=== PATIENT | female | born 1950 | race Caucasian/White ===

== ENCOUNTER 2018-09-01 18:20 | Inpatient (IN) ==
--- NOTE | 2018-09-01 19:46 | Emergency Department Note ---
Disposition Clinical Impression: Panniculitis Disposition: Still a Patient Referrals: NONE,PCP [Primary Care Provider] - General Adult HPI - General Chief complaint: ED General Medical Stated complaint: skin infection Time Seen by Provider: 09/01/18 18:24 Source: patient Limitations: no limitations, altered mental status Nursing Notes Reviewed: Yes Vital Signs Reviewed: Yes - History of Present Illness HPI Narrative: Attestation note: Patient was seen with the emergency medicine resident/nurse practitioner/physician hospital clinic assistant/transitional resident/medical student: Dr. CAROLINE ALFREDO I have personally performed a face to face evaluation on this patient. I have reviewed and agree with history and physical examination patient management and disposition. Briefly the salient points of the case are as follows 67-year-old morbidly obese female presented by EMS for "skin infection. Patient who has ulceration in her umbilical area below the pannus of her lower abdominal folds overlapping her pelvis, has a severe panniculitis with skin breakdown & SEROUS discharge and odor. No signs of acute tissue necrosis or bleeding. Patient will the wound cleansed IV antibiotics screening labs with admission for wound care and further treatment and management. Disposition pending Pain Scale: 10 - Related Data Allergies Allergy/AdvReac Type Severity Reaction Status Date / Time No Known Allergies Allergy Verified 09/01/18 18:33 Past Medical History - Past Medical History Medical history: Reports: CVA, diabetes, hyperlipidemia, hypertension - Social History Smoking Status: Never smoker Smokeless Tobacco Status: No Alcohol use: Reports: none Drug use: Reports: none Physical Exam - General Limitations: altered mental status General appearance: alert, in no apparent distress Course Vital Signs Temperature 98.1 F 09/01/18 18:27 Pulse Rate 101 09/01/18 18:27 Respiratory Rate 18 09/01/18 18:27 Blood Pressure 110/81 09/01/18 18:27 O2 Sat by Pulse Oximetry 97 09/01/18 18:27 Temperature 98.1 F 09/01/18 18:27 Pulse Rate 90 09/01/18 19:42 Respiratory Rate 20 09/01/18 19:42 Blood Pressure 91/58 09/01/18 19:42 O2 Sat by Pulse Oximetry 100 09/01/18 19:42 Oxygen Delivery Oxygen Delivery Room Air
[2018-09-01] MEDS ORDERED: Ampicillin/Sulbactam 3,000 MG in 0.9 % Sodium Chloride Mini Bag 100 ML IVPB ONE (19:47)
--- NOTE | 2018-09-01 20:03 | Emergency Department Note ---
Disposition Clinical Impression: Panniculitis, HERBER (acute kidney injury) Diabetes mellitus Qualifiers: Diabetes mellitus type: type 2 Diabetes mellitus group home insulin use: unspecified group home insulin use status Diabetes mellitus complication status: with unspecified complications Qualified Code(s): E11.8 - Type 2 diabetes mellitus with unspecified complications Disposition: Home, Self-Care Condition: Fair Referrals: NONE,PCP [Primary Care Provider] - Forms: ED Satisfaction Letter, Work/School Release Time of Disposition: 20:44 General Adult HPI - General Chief complaint: ED General Medical Stated complaint: skin infection Time Seen by Provider: 09/01/18 18:24 Source: patient, EMS Mode of arrival: EMS Limitations: no limitations, altered mental status Nursing Notes Reviewed: Yes Vital Signs Reviewed: Yes - History of Present Illness HPI Narrative: 67 yo female with past medical history of diabetes, hypertension and hyperlipidemia presents to the emergency department for 1 week of worsening abdominal pain secondary to a skin rash. She said the skin rash has become exquisitely painful when she moves. It is not that tender when she does not move. It also has started emitting a foul odor. She denies fever, chills, chest pain, shortness of breath, nausea and vomiting, diarrhea, burning with urination or blood in her urine. She has never had a skin infection like this before. Pain Scale: 10 - Related Data Home Medications Medication Instructions Recorded Confirmed Alendronate Sodium 70 mg PO SA 09/01/18 09/01/18 Aspirin [Lo-Dose Aspirin EC] 81 mg PO DAILY 09/01/18 09/01/18 Atorvastatin [Lipitor] 20 mg PO HS 09/01/18 09/01/18 Ibuprofen [Ibu] 800 mg PO TID 09/01/18 09/01/18 Insulin Glargine [Lantus] 60 unit SQ HS 09/01/18 09/01/18 Lisinopril-HCTZ 10-12.5 [Prinzide 2 each PO DAILY 09/01/18 09/01/18 10-12.5] Oxybutynin [Ditropan] 5 mg PO BID 09/01/18 09/01/18 Pioglitazone [Actos] 15 mg PO 0800 09/01/18 09/01/18 Allergies Allergy/AdvReac Type Severity Reaction Status Date / Time No Known Allergies Allergy Verified 09/01/18 18:33 All systems ED: reviewed and negative except as stated. Review of Systems: As Per HPI Constitutional: Denies: fever, chills, weakness Cardiovascular: Denies: chest pain, palpitations, dyspnea on exertion Respiratory: Denies: cough, dyspnea, wheezes Gastrointestinal: Reports: abdominal pain. Denies: nausea, vomiting, diarrhea Genitourinary: Denies: dysuria, hematuria Musculoskeletal: Denies: back pain, neck pain Integumentary: Reports: rash Neurological: Denies: headache, weakness, numbness Endocrine: Denies: fatigue Past Medical History - Past Medical History Attestation: Yes The following information was validated with the patient. Source: patient Medical history: Reports: CVA, diabetes, hyperlipidemia, hypertension - Social History Smoking Status: Never smoker Smokeless Tobacco Status: No Alcohol use: Reports: none Drug use: Reports: none Physical Exam - General Limitations: no limitations, altered mental status General appearance: alert, in no apparent distress - Head Head exam: atraumatic, normocephalic - Eye Eye exam: Present: normal appearance, PERRL, EOMI - Neck Neck exam: Present: normal inspection. Absent: tenderness, lymphadenopathy - Chest Chest inspection: Present: normal inspection. Absent: tenderness - Respiratory Respiratory exam: Present: normal lung sounds bilaterally - Cardiovascular Cardiovascular exam: Present: normal rhythm, tachycardia - Abdominal Exam Abdominal exam: Present: soft, tenderness. Absent: distention, guarding, rebound, rigidity - Extremities Exam Extremities exam: Present: normal inspection. Absent: tenderness, pedal edema - Neurological Exam Neurological exam: Present: alert, oriented X3 - Skin Skin exam: Present: other (Panniculitis noted with foul smelling clear discharge and ulceration to the skin. There is no surrounding cellulitis, no palpable crepitance, and no purulent discharge visible. There is also an area in the patient's umbilicus that appears erythematous and with some clear drainage.) Course Vital Signs Temperature 98.1 F 09/01/18 18:27 Pulse Rate 101 09/01/18 18:27 Respiratory Rate 18 09/01/18 18:27 Blood Pressure 110/81 09/01/18 18:27 O2 Sat by Pulse Oximetry 97 09/01/18 18:27 Temperature 98.1 F 09/01/18 18:27 Pulse Rate 90 09/01/18 20:26 Respiratory Rate 19 09/01/18 20:26 Blood Pressure 97/63 09/01/18 20:26 O2 Sat by Pulse Oximetry 100 09/01/18 20:26 Oxygen Delivery Oxygen Delivery Room Air Medical Decision Making - MDM Narrative Medical decision making narrative: Patient presents from home via EMS with a panniculitis on exam. As the patient is well-appearing and does not have any signs of deeper infection such as necrotizing fasciitis, we will forego CT scan at this point. Basic labs will be run and the patient will be started on Unasyn for presumed streptococcal skin infection. Disposition will likely be to admit the patient to the hospital for wound care. 2044 - patient's lab results have returned showing acute kidney injury as the patient has not been seeing a cardio tech and has not been told of chronic kidney disease by her primary care physician. Patient will be admitted to the hospitalist, patient will be placed on Zyvox in addition to the Unasyn and blood cultures will be drawn. The patient will also be given a liter of fluid for her HERBER. - Medical Records Medical records reviewed: Yes I reviewed the patient's medical records. - Lab Data Lab results reviewed: Yes I reviewed the patient's lab results. Result diagrams: 09/01/18 19:12 09/01/18 19:12 Lab Results 09/01/18 09/01/18 09/01/18 Range/Units 19:12 19:12 19:12 WBC 8.6 (4.3-11.1) K/mcL RBC 3.96 (3.82-4.97) M/mcL Hgb 10.9 L (11.5-15.4) g/dL Hct 34.0 L (35.3-44.9) % MCV 85.9 (83.0-100.0) fL MCH 27.5 L (28.0-33.3) pg MCHC 32.1 (31.6-35.5) g/dL RDW 17.5 H (11.5-14.5) % Plt Count 193 (140-400) K/mcL MPV 10.4 (9.4-12.4) fL Immature Gran % 0.5 (0-4) % Seg Neutrophils % 69.3 % Lymphocytes % 21.2 % Monocytes % 8.7 % Eosinophils % 0.1 % Basophils % 0.2 % Neutrophils # 6.0 (1.6-8.9) K/mcL Lymphocytes # 1.8 (0.6-4.6) K/mcL Monocytes # 0.8 (0.0-1.3) K/mcL Eosinophils # 0.0 (0.0-0.6) K/mcL Basophils # 0.0 (0.0-0.2) K/mcL Sodium 133 L (136-145) mEq/L Potassium 3.9 (3.5-5.1) mEq/L Chloride 105 (98-107) mEq/L Carbon Dioxide 20 L (23-29) mEq/L BUN 91 H (8-23) mg/dL Creatinine 3.00 H (0.60-1.20) mg/dL Est GFR ( Amer) 19 L (> 60) Est GFR (Non-Af Amer) 16 L (> 60) BUN/Creatinine Ratio 30 H (6-26) Glucose 189 H (70-105) mg/dL Calculated Osmolality 309 H (280-300) Lactic Acid 1.5 (0.5-2.2) mmol/L Calcium 8.2 L (8.6-10.3) mg/dL
[2018-09-01 20:28] LABS: Basophils % 0.2 %; Eosinophils % 0.1 %; Hemoglobin 10.9 g/dL (11.5-15.4); Immature Granulocytes % 0.5 % (0-4); Lymphocytes # 1.8 K/mcL (0.6-4.6); Lymphocytes % 21.2 %; Mean Corpuscular HGB Conc 32.1 g/dL (31.6-35.5); Mean Corpuscular Hemoglobin 27.5 pg (28.0-33.3); Mean Corpuscular Volume 85.9 fL (83.0-100.0); Mean Platelet Volume 10.4 fL (9.4-12.4); Monocytes # 0.8 K/mcL (0.0-1.3); Monocytes % 8.7 %; Platelet Count 193 K/mcL (140-400); Red Blood Count 3.96 M/mcL (3.82-4.97); Red Cell Distribution Width 17.5 % (11.5-14.5); Segmented Neutrophils % 69.3 %
[2018-09-01 20:34] LABS: Calcium 8.2 mg/dL (8.6-10.3); Potassium 3.9 mEq/L (3.5-5.1)
[2018-09-01] MEDS ORDERED: 0.9 % Sodium Chloride 1,000 ML IVC ONE (20:42)
[2018-09-02] MEDS ORDERED: Naloxone 0.4 MG/ML INJ IVP PRN (00:02)
[2018-09-02] MEDS ORDERED: D5% in Water 1,000 ML IVC PRN (00:11)
[2018-09-02] MEDS ORDERED: Dextrose Gel 15 GM/37.5 ML TUBE PO PRN ×2 (00:11)
[2018-09-02] MEDS ORDERED: *HR* Dextrose 50 % in Water (Syg) 50 ML SYRINGE IVP PRN (00:11)
--- NOTE | 2018-09-02 00:14 | Internal Med History&Physical ---
Date of Encounter: 09/02/18 Time of Encounter: 00:12 Internal Medicine - H&P: HPI Chief complaint: Skin rash History of present illness: Ms. Virgen is a 67 year old female with past medical history of diabetes, hypertension and hyperlipidemia who presented to the ED due to 1 week history of worsening abdominal pain secondary to skin rash. Patient apparently lives with her daughter and is mostly bedbound. Per reports she was found soiled in her urine. On initial presentation patient was afebrile and relatively hemodynamically stable. Blood pressure did run soft in the 90s on various measurements. Laboratory workup was notable for a normal white count, elevated creatinine of 3.0 with a GFR of 16. Lactic acid within normal limits. UA positive for nitrites and leukocyte esterase. Blood cultures were obtained and patient was started on Unasyn and Linezolid due to patient's poor renal function. On my assessment patient was alert and oriented 2, appeared to have some altered mentation. She was able to follow commands and respond to yes and no questions inconsistently. Patient was found to be hypotensive with a systolic in the 80s and heart rate in the 120s. EKG was obtained concerning for atrial fibrillation with RVR. Examination of the abdomen showed significant erythema with numerous superficial ulcerations with clear secretions within the abdominal folds as well as in the groin region. Patient was given a 500 mL bolus of fluids with improvement in blood pressure. Because of patient's hypotension and atrial fibrillation, patient was subsequently transferred from to [facility] [place] Patient admitted for possible UTI as well as skin and soft tissue infection. Acuity of patient's renal function unclear as we have no previous metabolic panel in our records. Past Med Surg Social Fam HX - Past Medical History Medical history: CVA, diabetes, hyperlipidemia, hypertension - Social History Smoking Status: Never smoker Smokeless Tobacco Status: No Alcohol use: none Drug use: none Internal Medicine - H&P: Meds Alendronate Sodium 70 mg PO SA 09/01/18 [History] Aspirin [Lo-Dose Aspirin EC] 81 mg PO DAILY 09/01/18 [History] Atorvastatin [Lipitor] 20 mg PO HS 09/01/18 [History] Ibuprofen [Ibu] 800 mg PO TID 09/01/18 [History] Insulin Glargine [Lantus] 60 unit SQ HS 09/01/18 [History] Lisinopril-HCTZ 10-12.5 [Prinzide 10-12.5] 2 each PO DAILY 09/01/18 [History] Oxybutynin [Ditropan] 5 mg PO BID 09/01/18 [History] Pioglitazone [Actos] 15 mg PO 0800 09/01/18 [History] Allergy/AdvReac Type Severity Reaction Status Date / Time acetaminophen [From Vicodin] AdvReac Vomiting Verified 09/01/18 20:52 hydrocodone [From Vicodin] AdvReac Vomiting Verified 09/01/18 20:52 All Systems PM: A 10-system review of systems was performed and is negative for pertinent findings except as documented above in the HPI. - Constitutional Constitutional: no chills, no fever(s), no night sweats - EENT Eyes: no change in vision, no discharge, no pain, no photophobia Ears: no ear discharge, no ear pain, no tinnitus Nose, mouth and throat: no dysphagia, no nasal discharge, no neck pain, no sore throat - Cardiovascular Cardiovascular ROS IM: no chest pain, no diaphoresis, no dyspnea, no lightheadedness, no palpitations, no syncope - Respiratory Respiratory: no cough, no dyspnea, no wheezing, no excessive phlegm production - Gastrointestinal Gastrointestinal: no abdominal pain, no diarrhea, no hematemesis, no hematochezia, no melena, no nausea, no vomiting - Genitourinary Genitourinary: no change in urinary stream, no dysuria, no flank pain, no hematuria - Musculoskeletal Musculoskeletal ROS IM: no numbness, no tingling - Integumentary Integumentary IM: no rash, no unusual bruising - Neurological Neurological ROS: no confusion, no convulsions, no focal weakness, no numbness, no tingling, no tremor(s) - Hematologic/Lymphatic Hematologic/Lymphatic: no easy bruising - Constitutional Vitals: Temp Pulse Resp BP Pulse Ox 98.1 F 88 22 108/58 98 09/01/18 18:27 09/01/18 22:39 09/01/18 22:39 09/01/18 22:39 09/01/18 22:39 Exam: General: Alert and oriented 2 Skin: Significant erythema within the abdominal skin folds with numerous [place] perficial ulcerations with clear secretions. No evidence of induration or fluctuance. Erythema with an groin region within the skin folds of the thighs. HEENT:EOM, pupils equal, round and reactive. Cardiovascular:Normal S1 & S2, no rubs, murmurs or gallops. No JVD. Pulse regular. Lungs:Normal breath sounds, no wheezes or crackles. Abdomen:Soft, non-tender, no rigidity. Extremities:No deformity, no edema or tenderness, no joint swelling or clubbing. Neurological:Normal cognition and motor skills. Pulses:Carotid and radial pulses normal +2. Rest of the physical exam is non contributory Internal Med - H&P Results - Labs CBC & Chem 7: 09/01/18 19:12 09/01/18 19:12 Labs: Short CBC 09/01/18 Range/Units 19:12 WBC 8.6 (4.3-11.1) K/mcL Hgb 10.9 L (11.5-15.4) g/dL Hct 34.0 L (35.3-44.9) % Plt Count 193 (140-400) K/mcL Neutrophils # 6.0 (1.6-8.9) K/mcL BMP 09/01/18 19:12 Sodium 133 L Potassium 3.9 Chloride 105 Carbon Dioxide 20 L BUN 91 H Creatinine 3.00 H Glucose 189 H Calcium 8.2 L - Assessment and Plan (1) Panniculitis Current Visit: Yes Status: Acute Assessment and plan: Severe panniculitis/cellulitis of the abdominal skin folds with numerous ulcerations of the skin. Severely painful during examination. No evidence of crepitus/fluctuance. -Continue current antibiotic regimen with Unasyn and Linezolid (2) HERBER (acute kidney injury) Current Visit: Yes Status: Acute Assessment and plan: Patient presents with a creatinine of 3.0 and GFR of 16. No reports of chronic kidney disease in patient's records. Unclear if this is acute or chronic. To catheter placed by nurse with a reported yellowish puslike drainage. Patient received fluid bolus in the ED. -Continue fluids; will reassess kidney function -Check UA -We will obtain urine sodium, urine osmolality, urine random protein/creatinine ratio -Patient will likely need imaging with retroperitoneal US -Nephrology consult (3) Atrial fibrillation Current Visit: Yes Status: Acute Assessment and plan: Patient noted to be tachycardic on physical examination. EKG was obtained which showed atrial fibrillation with rapid ventricular response. Heart rate between 117 and 134. -Telemetry -Given patient's hypotension we will continue fluid resuscitation. We will start on rate control once blood pressure stabilized. -We will start patient on heparin drip for stroke prophylaxis. Qualifiers: Atrial fibrillation type: paroxysmal Qualified Code(s): I48.0 - Paroxysmal atrial fibrillation (4) Diabetes mellitus Current Visit: Yes Status: Acute Assessment and plan: Blood glucose checks. Sliding scale insulin. Diabetic diet. Qualifiers: Diabetes mellitus type: type 2 Diabetes mellitus care home insulin use: unspecified care home insulin use status Diabetes mellitus complication status: with unspecified complications Qualified Code(s): E11.8 - Type 2 diabetes mellitus with unspecified complications - Time Spent With Patient Total time spent is greater than 50% in coordination of care (as documented) at patient's floor/unit and/or counseling patient:
[2018-09-02 00:19] LABS: Bilirubin,Urine Negative (Negative); Blood,Urine Large (Negative); Clarity,Urine Turbid (Clear); Color,Urine Yellow (Yellow); Glucose,Urine (UA) Normal (Normal); Ketones,Urine Negative (Negative); Leukocyte Esterase,Urine Large (Negative); Nitrite,Urine Positive (Negative); Protein,Urine 100 mg/dL (Neg-Trace); Specific Gravity,Urine 1.016 (1.010-1.025); Urobilinogen,Urine Normal (Normal)
[2018-09-02 00:21] LABS: Bacteria,Urine Many per hpf (None-Few); Squamous Epithelial Cell,Urine Many per lpf (None-Few); WBC,Urine TNTC per hpf (0-3)
[2018-09-02] MEDS ORDERED: 0.9 % Sodium Chloride 500 ML IVC ONE ×2 (00:43→06:38)
[2018-09-02] MEDS: 0.9 % Sodium Chloride 1,000 ML IVC SCH ×2 (00:46→20:11)
[2018-09-02] MEDS ORDERED: 0.9 % Sodium Chloride 500 ML ONE (00:53)
[2018-09-02] MEDS: Insulin LISPRO 300 UNITS/3 ML VIAL SQ SCH ×4 (01:18→17:17)
[2018-09-02] MEDS ORDERED: *HR* Heparin 5,000 UNIT/ML VIAL IVP PRN ×2 (03:49)
[2018-09-02] MEDS: Heparin 25,000 UNIT/250 ML D5W 25,000 UNIT/250 ML IV.SOLN IVC SCH ×2 (05:40→22:30)
[2018-09-02] MEDS ORDERED: Piperacillin/Tazobactam 3.375 GM in 0.9 % Sodium Chloride Mini Bag 100 ML IVPB SCH (06:00)
[2018-09-02 06:12] LABS: Basophils % 0.1 %; Eosinophils % 0.1 %; Immature Granulocytes % 0.5 % (0-4); Lymphocytes # 1.6 K/mcL (0.6-4.6); Lymphocytes % 21.9 %; Mean Corpuscular HGB Conc 31.8 g/dL (31.6-35.5); Mean Corpuscular Hemoglobin 26.9 pg (28.0-33.3); Mean Corpuscular Volume 84.6 fL (83.0-100.0); Monocytes # 0.7 K/mcL (0.0-1.3); Monocytes % 8.9 %; Neutrophils # 5.1 K/mcL (1.6-8.9); Platelet Count 154 K/mcL (140-400); Red Blood Count 3.31 M/mcL (3.82-4.97); Red Cell Distribution Width 17.3 % (11.5-14.5); Segmented Neutrophils % 68.5 %
[2018-09-02 06:13] LABS: Hemoglobin 8.9 g/dL (11.5-15.4)
[2018-09-02 06:22] LABS: INR 1.2; Prothrombin Time 13.4 Seconds (9.4-12.1)
[2018-09-02 06:23] LABS: Activated Partial Thrombo Time 27.1 Seconds (26.0-36.0); Heparin anti-factor XA UFH 0.01 IU/mL (0.30-0.70)
[2018-09-02 06:31] LABS: Albumin 2.5 g/dL (3.5-5.7); Bilirubin,Total 0.6 mg/dL (0.3-1.0); Calcium 7.6 mg/dL (8.6-10.3); Globulin 2.6 g/dL (2.4-3.5); Magnesium 2.1 mg/dL (1.6-2.6); Potassium 3.3 mEq/L (3.5-5.1); Total Protein 5.1 g/dL (6.4-8.9)
[2018-09-02] MEDS ORDERED: Aminoglycoside Consult 1 EACH MC ONE (07:38)
[2018-09-02] MEDS ORDERED: *HR* Metoprolol 5 MG/5 ML VIAL IVP PRN (07:59)
[2018-09-02] MEDS ORDERED: *HR* Heparin 5,000 UNIT/ML VIAL SQ SCH (08:00)
[2018-09-02 08:31] LABS: ABG Base Excess -8 mEq/L (-2 to 3); ABG HCO3 15 mEq/L (21-27); ABG Oxygen Saturation 94 % (95-98); ABG PCO2 24 mmHg (35-45); ABG PH 7.42 pH Units (7.32-7.45); ABG PO2 67 mmHg (85-104); ABG TCO2 16 mEq/L (20-26)
--- NOTE | 2018-09-02 08:33 | Internal Med Progress Note ---
<Casa Anderson - Last Filed: 09/02/18 17:19> Hospitalist Progress Note - Encounter Date of Encounter: 09/02/18 Time of Encounter: 09:10 - Subjective Interval History: Patient was seen and examined at bedside this morning. She states that overall her pain may be improved. She presented with bilateral stomach pains for about 1 week. She denies any fevers but does say she might be having some chills. Denies chest pain, shortness breath, nausea, vomiting, numbness, tingling. - Exam Vitals: Temp Pulse Resp BP Pulse Ox 98.4 F 85 20 93/51 94 09/02/18 08:02 09/02/18 08:02 09/02/18 08:02 09/02/18 08:02 09/02/18 08:02 Exam: Gen.: Vitals noted. No acute distress. AAOx2, resting comfortably in bed. Morbidly obese HEENT: PERRL/EOMI, oropharynx clear, Normocephalic, atraumatic, MMM Cardiac: Irregularly irregular, no murmur, +S1/S2, No BLE edema Pulmonary: CTA bilaterally, no wheezes, rales or rhonchi, equal chest expansion, unlabored breathing Abdomen: soft, tender to palpation in the lower regions, BS noted, no guarding, no palpable HSM Skin: warm and very dry, umbilicus with evidence of purulent drainage, pannus on underside does show significant moist-appearing erythema with no obvious drainage, however bandages to have a yellowish tinge. MSK: ROM assessed, no joint swelling noted, gait no assessed while in bed. Non tender calf or clubbing Neuro: A&Ox2, moves all extremities, no focal deficits, sensation intact Psych: Appropriate mood and behavior, AOx2 - Assessment and Plan (1) Sepsis Current Visit: Yes Status: Acute Assessment and Plan: - Evidence of sepsis with tachycardia, tachypnea - Lactic acid within normal limits at 1.5 - Did not meet sepsis on admission - Suspected source is panniculitis as well as potential UTI - Suspected organism: Most likely skin kieran - WBC within normal limits 7.4 - Urinalysis shows positive nitrates, large leukocyte esterase however does have many epithelial cells. Culture pending - Blood cultures will be obtained this morning 5/132 - Wound and urine cultures both obtained and are pending - Physical exam does show severe panniculitis with seropurulent drainage. Due to nature of obvious purulent drainage in umbilicus, will obtain CT today - Chest x-ray on admission shows no acute disease - CT of the abdomen/pelvis shows midline visceral fat containing hernias without complication, no intra-abdominal abnormality, small bowel shock and renal stones. - Wound care has been consulted - Patient was started on Zosyn and linezolid due to kidney function - Also received a dose of Unasyn and vancomycin Plan - Continue antibiotics but will change to vancomycin and Zosyn, day #2 of therapy - Wound care - Will also add fluconazole, day 1 (2) Panniculitis Current Visit: Yes Status: Acute Assessment and Plan: Sepsis as above Started on Unasyn and linezolid by admitting team, will change to vancomycin and Zosyn (3) HERBER (acute kidney injury) Current Visit: Yes Status: Acute Assessment and Plan: Patient presents with a creatinine of 3.0 and GFR of 16. No reports of chronic kidney disease in patient's record however patient does admit to some history but is unsure stage. - Unclear if this is acute or chronic. - To catheter placed by nurse with a reported yellowish puslike drainage. Patient received fluid bolus in the ED. Plan -We will obtain urine sodium, urine osmolality, urine random protein/creatinine ratio -Patient will likely need imaging with retroperitoneal US -Nephrology consult, appreciate recommendations - Suspect that this may be related to acute on chronic kidney injury with the etiology of sepsis and prerenal (4) Diabetes mellitus Current Visit: Yes Status: Acute Assessment and Plan: Blood glucose checks. Sliding scale insulin. Diabetic diet. Well-controlled since his admission in the 100s (5) Atrial fibrillation Current Visit: Yes Status: Acute Assessment and Plan: - Patient noted to be tachycardic on physical examination. - EKG was obtained which showed atrial fibrillation with rapid ventricular response. - Heart rate now better controlled and 70s and 80s -Telemetry - CHADVASC 5 (age, HTN, female, CHF, DM) -No home av dick blockers -We will start patient on heparin drip for stroke prophylaxis. We will discuss options for anticoagulation tomorrow once more stable - When necessary metoprolol IV push (6) CKD (chronic kidney disease) Current Visit: Yes Status: Suspected Assessment and Plan: suspet CKD as above. Will obtain records (7) UTI (urinary tract infection) Current Visit: Yes Status: Acute Assessment and Plan: - as above - Abx and cultures pending (8) Elevated troponin Current Visit: Yes Status: Acute Assessment and Plan: - Noted to be elevated today at 0.45, this was trended to 0.25 - Suspect this is likely secondary to demand ischemia in the setting of sepsis as above - Also noted patient was in nature fibrillation with RVR which has since resolved - Patient was started on heparin drip due to A. fib - No previous history of CAD - Echocardiogram shows preserved ejection fraction with mild diastolic dysfunction Plan - We will continue monitor at this time - Will not trend troponins as it is our downtrending - EKG was obtained this morning and reviewed personally (9) Anemia Current Visit: Yes Status: Chronic Assessment and Plan: - Hemoglobin of 8.9 this morning which is down trending from 10.9 admission - Unclear baseline - It is noted that patient did receive fluids for sepsis and I suspect that this is likely a dilutional drop - No signs or symptoms of bleeding - Patient denies any symptoms - We will continue to monitor and transfuse if less than 7 - Time Spent with Patient Total time spent is greater than 50% in coordination of care (as documented) at patient's floor/unit and/or counseling patient: Internal Medicine: Result - Labs CBC & Chem 7: 09/02/18 06:01 09/02/18 06:01 Labs: Short CBC 09/01/18 09/02/18 Range/Units 19:12 06:01 WBC 8.6 7.4 (4.3-11.1) K/mcL Hgb 10.9 L 8.9 L D (11.5-15.4) g/dL Hct 34.0 L 28.0 L (35.3-44.9) % Plt Count 193 154 (140-400) K/mcL Neutrophils # 6.0 5.1 (1.6-8.9) K/mcL BMP 09/01/18 09/02/18 19:12 06:01 Sodium 133 L 139 Potassium 3.9 3.3 L Chloride 105 110 H Carbon Dioxide 20 L 17 L BUN 91 H 82 H Creatinine 3.00 H 2.42 H Glucose 189 H 156 H Calcium 8.2 L 7.6 L Liver Function 09/02/18 Range/Units 06:01 Total Bilirubin 0.6 (0.3-1.0) mg/dL AST 16 (13-39) Units/L ALT 10 (7-52) Units/L Alkaline Phosphatase 35 (34-104) Units/L Albumin 2.5 L (3.5-5.7) g/dL Urine 09/02/18 Range/Units 00:00 Urine Color Yellow (Yellow) Urine Clarity Turbid A (Clear) Urine pH 6.0 (5.0-8.0) pH Units Ur Specific [place] 1.016 (1.010-1.025) Urine Protein 100 H (Neg-Trace) mg/dL Urine Glucose (UA) Normal (Normal) mg/dL - ABG Interpretation ABG results: ABG ABG pH 7.42 pH Units (7.32-7.45) 09/02/18 08:29 ABG pCO2 24 mmHg (35-45) L 09/02/18 08:29 ABG pO2 67 mmHg (85-104) L 09/02/18 08:29 ABG O2 Saturation 94 % (95-98) L 09/02/18 08:29 PT/INR, D-dimer PT 13.4 Seconds (9.4-12.1) H 09/02/18 06:01 Consult Discharge Plan - Plan Referrals: NONE,PCP [Primary Care Provider] - <Emma Rodriguez - Last Filed: 09/02/18 17:35> Hospitalist Progress Note - Encounter Date of Encounter: 09/02/18 - Exam Vitals: Temp Pulse Resp BP Pulse Ox 98.1 F 76 18 97/48 95 09/02/18 17:09 09/02/18 17:09 09/02/18 17:09 09/02/18 17:09 09/02/18 17:09 - Assessment and Plan (1) Panniculitis Current Visit: Yes Status: Acute (2) HERBER (acute kidney injury) Current Visit: Yes Status: Acute (3) Diabetes mellitus Current Visit: Yes Status: Acute (4) Atrial fibrillation Current Visit: Yes Status: Acute (5) Sepsis Current Visit: Yes Status: Acute (6) CKD (chronic kidney disease) Current Visit: Yes Status: Suspected (7) UTI (urinary tract infection) Current Visit: Yes Status: Acute (8) Elevated troponin Current Visit: Yes Status: Acute (9) Anemia Current Visit: Yes Status: Chronic - Time Spent with Patient Total time spent is greater than 50% in coordination of care (as documented) at patient's floor/unit and/or counseling patient: Internal Medicine: Result - Labs CBC & Chem 7: 09/02/18 06:01 09/02/18 06:01 Labs: Short CBC 09/01/18 09/02/18 Range/Units 19:12 06:01 WBC 8.6 7.4 (4.3-11.1) K/mcL Hgb 10.9 L 8.9 L D (11.5-15.4) g/dL Hct 34.0 L 28.0 L (35.3-44.9) % Plt Count 193 154 (140-400) K/mcL Neutrophils # 6.0 5.1 (1.6-8.9) K/mcL BMP 09/01/18 09/02/18 19:12 06:01 Sodium 133 L 139 Potassium 3.9 3.3 L Chloride 105 110 H Carbon Dioxide 20 L 17 L BUN 91 H 82 H Creatinine 3.00 H 2.42 H Glucose 189 H 156 H Calcium 8.2 L 7.6 L Cardiac Enzymes 09/02/18 09/02/18 Range/Units 08:10 13:41 Troponin I 0.45 H* 0.25 H* (< 0.04) ng/mL Liver Function 09/02/18 Range/Units 06:01 Total Bilirubin 0.6 (0.3-1.0) mg/dL AST 16 (13-39) Units/L ALT 10 (7-52) Units/L Alkaline Phosphatase 35 (34-104) Units/L Albumin 2.5 L (3.5-5.7) g/dL Urine 09/02/18 Range/Units 00:00 Urine Color Yellow (Yellow) Urine Clarity Turbid A (Clear) Urine pH 6.0 (5.0-8.0) pH Units Ur Specific [place] 1.016 (1.010-1.025) Urine Protein 100 H (Neg-Trace) mg/dL Urine Glucose (UA) Normal (Normal) mg/dL - ABG Interpretation ABG results: ABG ABG pH 7.42 pH Units (7.32-7.45) 09/02/18 08:29 ABG pCO2 24 mmHg (35-45) L 09/02/18 08:29 ABG pO2 67 mmHg (85-104) L 09/02/18 08:29 ABG O2 Saturation 94 % (95-98) L 09/02/18 08:29 PT/INR, D-dimer PT 13.4 Seconds (9.4-12.1) H 09/02/18 06:01 - Impressions Impressions Echocardiogram 09/02/18 01:42 Impressions: LVEF 65-70%. Mild concentric left ventricular hypertrophy. Mild left ventricular diastolic dysfunction. Mildly dilated right ventricle with normal function.. Mild aortic stenosis. Mild tricuspid regurgitation. No evidence of pulmonary hypertension. Left Ventricular Wall Motion: Rest Echo Findings All wall segments showed normal motion. Findings: Study Quality * Technically sub-optimal due to poor echocardiographic windows. ECG Findings * Normal sinus rhythm. Left Ventricle * LVEF 65-70%. * Mild concentric left ventricular hypertrophy. * Mild left ventricular diastolic dysfunction. * Atypical septal motion consistent with noted. * Normal LV chamber size. Right Ventricle * Mildly dilated right ventricle with normal function.. * Left Atrium * Normal left atrial size. Right Atrium * Mildly dilated right atrium. Aortic Valve * Aortic valve not well visualized. * Mild aortic stenosis. * Peak aortic velocity and mean gradient are 2.55m/s and 14 mmHg, respectively. * No aortic regurgitation. * Mildly calcified aortic valve leaflets. Mitral Valve * Normal mitral valve structure. * No mitral regurgitation. * No mitral stenosis. Tricuspid Valve * Mild tricuspid regurgitation. * No evidence of pulmonary hypertension. * No tricuspid stenosis. * Normal tricuspid valve structure. Pulmonic Valve * Trace pulmonic regurgitation. Aorta * Normally sized aortic root. Pericardium * The pericardium appears normal. IVC * Normal IVC dimensions and inspiratory collapse. Pulmonary Artery * Pulmonary artery not well visualized. Chest X-Ray 09/02/18 07:54 IMPRESSION: No acute cardiopulmonary disease D/ / Casa Hernandes MD / Casa Hernandes MD Interpreting Provider: Casa Hernandes MD Abdomen/Pelvis CT 09/02/18 09:20 IMPRESSION: Midline ventral fat containing hernias without acute hernia complication. No specific evidence of cellulitis. No acute intra-abdominal/intrapelvic abnormality. Small nonobstructing left renal stones without evidence of hydronephrosis. No acute bowel abnormality. D/ / 09/02/2018 11:37:51 Gabriel Block MD / Carrie Hallman Interpreting Provider: Gabriel Block MD - Attending Attestation I examined this patient and my medical decision-making was reviewed with the Resident Physician. I agree with the documented findings, disposition and tr eatment plan as described except to the extent set forth below. <Casa Anderson - Last Filed: 09/02/18 17:19> (1) Sepsis Qualifiers: Sepsis type: sepsis due to unspecified organism Qualified Code(s): A41.9 - Sepsis, unspecified organism (4) Diabetes mellitus Qualifiers: Diabetes mellitus type: type 2 Diabetes mellitus [employer] insulin use: unspecified chcf insulin use status Diabetes mellitus complication status: with unspecified complications Qualified Code(s): E11.8 - Type 2 diabetes mellitus with unspecified complications (5) Atrial fibrillation Qualifiers: Atrial fibrillation type: paroxysmal Qualified Code(s): I48.0 - Paroxysmal atrial fibrillation (6) CKD (chronic kidney disease) Qualifiers: Chronic kidney disease stage: stage 3 (moderate) Qualified Code(s): N18.3 - Chronic kidney disease, stage 3 (moderate) (7) UTI (urinary tract infection) Qualifiers: Urinary tract infection type: acute cystitis Hematuria presence: with hematuria Qualified Code(s): N30.01 - Acute cystitis with hematuria (9) Anemia Qualifiers: Anemia type: unspecified type Qualified Code(s): D64.9 - Anemia, unspecified <Ghanem,Woody Rheem - Last Filed: 09/02/18 17:35> (3) Diabetes mellitus Qualifiers: Diabetes mellitus type: type 2 Diabetes mellitus chcf insulin use: unspecified [employer] insulin use status Diabetes mellitus complication status: with unspecified complications Qualified Code(s): E11.8 - Type 2 diabetes mellitus with unspecified complications (4) Atrial fibrillation Qualifiers: Atrial fibrillation type: paroxysmal Qualified Code(s): I48.0 - Paroxysmal atrial fibrillation (5) Sepsis Qualifiers: Sepsis type: sepsis due to unspecified organism Qualified Code(s): A41.9 - Sepsis, unspecified organism (6) CKD (chronic kidney disease) Qualifiers: Chronic kidney disease stage: stage 3 (moderate) Qualified Code(s): N18.3 - Chronic kidney disease, stage 3 (moderate) (7) UTI (urinary tract infection) Qualifiers: Urinary tract infection type: acute cystitis Hematuria presence: with hematuria Qualified Code(s): N30.01 - Acute cystitis with hematuria (9) Anemia Qualifiers: Anemia type: unspecified type Qualified Code(s): D64.9 - Anemia, unspecified
[2018-09-02 08:48] LABS: Troponin I 0.45 ng/mL (< 0.04)
[2018-09-02] MEDS: Aspirin Enteric Coated 81 MG Tablet PO SCH (09:01)
[2018-09-02] MEDS ORDERED: Vancomycin 1 EACH in 0.9 % Sodium Chloride 250 ML IVPB SCH (11:00)
--- NOTE | 2018-09-02 13:36 | Nephrology Consult Note ---
Date of Encounter: 09/02/18 Time of Encounter: 12:30 Assessment and Plan (1) HERBER (acute kidney injury) Current Visit: Yes Status: Acute Possible HERBER on CKD. No baseline GFR for reference. GFR on presentation of 16. Creatinine of 3 on presentation, but improving to 2.42 today. UA shows albuminuria. No baseline GFR or creatinine, however possess risk factors for CKD including T2DM, HTN, chronic NSAID use. Possible AIN due to rash (however no offending medication found on med list) or glomerular given presentation of rash, however will see what FeNa status is. Bedbound so at risk for rhabomyalsis however CPK level was normal. Setting of UTI and sepsis. Will order labs to calculate FeNa to determine prerenal, instrinic, or post-renal etiology. - Urine Protein/creatine ratio pending. - Urine sodium pending. - Urine creatinine. - Urine eosinophils. - Renal dose antibiotics and medications. - Avoid nephrotoxins. - Recommend aggressive IVF. Will put on 0.45% NaCL with 75 meq NaHCO3 125 ml/HR. Will also give a bolus of 1 L NS. - Renal u/s. - Monitor I/O's. (2) Hypokalemia Current Visit: Yes Status: Acute Potassium of 3.3. - 40 meq KCl PO given in AM by primary team - Recheck in AM. . (3) Anemia Current Visit: Yes Status: Acute 10.9 on admission down to 8.9. Setting of CKD. Qualifiers: Anemia type: unspecified type Qualified Code(s): D64.9 - Anemia, unspecified (4) Atrial fibrillation Current Visit: Yes Status: Acute Qualifiers: Atrial fibrillation type: paroxysmal Qualified Code(s): I48.0 - Paroxysmal atrial fibrillation (5) Panniculitis Current Visit: Yes Status: Acute History of Present Illness - Reason for Consult Consult date: 09/02/18 Acute Kidney Injury, Chronic Kidney Disease - Chief Complaint Skin Rash - History of Present Illness Patient is a 67 year old female with past medical history of diabetes, hypertension and hyperlipidemia who presented to the ED due to 1 week history of worsening abdominal pain secondary to skin rash. Patient apparently bedbound. On initial presentation patient was afebrile and relatively hemodynamically stable. Presented with a normal WBC count, elevated creatinine 3.0 and GFR of 16. Lactic acid within normal limits. UA positive for nitrites and leukocyte esterase. Blood cultures obtained. Started on Unasyn and Linezolid due to patient's poor renal function. AMS on presentation (A&Ox2). Found to be hypotensive with a systolic in the 80s and heart rate in the 120s. EKG showed A-fib RVR. Given a 500 mL bolus of fluids with improvement in blood pressure. Admitted for possible UTI as well as skin and soft tissue infection. Nephrology was consulted for unclear chronicity of decline of renal function given there are no previous metabolic panels in our records. When seen today, patient was A&Ox1. She tells me that she was not drinking enough water for 2 weeks before presenting to the ER. Patient did confirm that she is bedbound. She lives with her daughter, who helps her get around the house with a walker. Patient says that she takes NSAIDs daily of hip pain. She has been aware that she has issues with her kidneys for years, however she has never seen a complex human resources manager. She currently denies any chest pain or SOB. Denies any abdominal painl Denies any fever. Denies cough. Denies swellin in her LE. Denies any dysuria. Past Med Surg Social Fam HX - Past Medical History Medical history: CVA, diabetes, hyperlipidemia, hypertension - Social History Smoking Status: Never smoker Smokeless Tobacco Status: No Alcohol use: none Drug use: none Medications and Allergies Alendronate Sodium 70 mg PO SA 09/01/18 [History] Aspirin [Lo-Dose Aspirin EC] 81 mg PO DAILY 09/01/18 [History] Atorvastatin [Lipitor] 20 mg PO HS 09/01/18 [History] Ibuprofen [Ibu] 800 mg PO TID 09/01/18 [History] Insulin Glargine [Lantus] 60 unit SQ HS 09/01/18 [History] Lisinopril-HCTZ 10-12.5 [Prinzide 10-12.5] 2 each PO DAILY 09/01/18 [History] Oxybutynin [Ditropan] 5 mg PO BID 09/01/18 [History] Pioglitazone [Actos] 15 mg PO 0800 09/01/18 [History] Allergy/AdvReac Type Severity Reaction Status Date / Time acetaminophen [From Vicodin] AdvReac Vomiting Verified 09/01/18 20:52 hydrocodone [From Vicodin] AdvReac Vomiting Verified 09/01/18 20:52 Review of Systems Constitutional: no fever(s) Nose, mouth and throat: no dizziness Cardiovascular: no chest pain, no dyspnea, no edema, no lightheadedness Respiratory: no cough, no wheezing Gastrointestinal: no abdominal pain, no nausea, no vomiting Musculoskeletal: muscle weakness Neurological: weakness, no dizziness, no focal weakness Psychiatric: as per HPI, other (A&Ox1. ) Exam - Vital Signs Vital signs: Initial Vital Signs Temp Pulse Resp BP Pulse Ox 98.1 F 101 18 110/81 97 09/01/18 18:27 09/01/18 18:27 09/01/18 18:27 09/01/18 18:27 09/01/18 18:27 Vital Signs - Last 8 Hours Temp Pulse Resp BP Pulse Ox 09/02/18 11:25 97.4 F L 75 18 86/76 96 09/02/18 08:02 98.4 F 85 20 93/51 94 09/02/18 07:29 79 106/56 09/02/18 06:40 84 16 86/47 96 Intake and Output 09/01/18 09/02/18 09/02/18 23:59 07:59 15:59 Intake Total 1100 / 1100 1000 / 1880 880 / 1880 Balance 1100 / 1100 1000 / 1880 880 / 1880 Intake: IV Fluids 1100 / 1100 1000 / 1400 400 / 1400 0.9 % Sodium Chloride 1,000 ML 1000 / 1000 500 / 500 @ 100 mls/hr IVC .Q10H [facility] Rx#: [id number] 0.9 % Sodium Chloride 500 ML @ 500 / 500 999 mls/hr IVC .Q31M [facility] Rx#: [id number] Unasyn 3,000 MG In 0.9 % Sodium 100 / 100 Chloride (Mini-Bag +) 100 ML @ 200 mls/hr IVPB ONCE [facility] Rx#: [id number] Zyvox Premix 600mg/300mL 600 mg 300 / 300 In 300 ml @ 150 mls/hr IVPB Q12H [facility] Rx#:[id number] Zosyn 3.375 GM In 0.9 % Sodium 100 / 100 Chloride (Mini-Bag +) 100 ML @ 25 mls/hr IVPB Q12HR [facility] Rx#: [id number] Oral 480 / 480 Other: Meal Lunch Percent of Meal Consumed 50% Weight 106.957 kg Blood Glucose* 166 181 - General Appearance General appearance: appears started age, obese EENT: mucous membranes moist Neck: no JVD Respiratory: clear Cardiology: holosystolic murmur, no rub, no gallops, no edema, regular rate, regular rhythm, normal S1, normal S2 Gastrointestinal: normoactive bowel sounds, no tenderness, no guarding, no organomegaly, no masses Integumentary: rash, erythema (Lower abdominal quadrants b/l. ), hyperkeratosis (Feet b/l) Additional Comments: Large erythema covering the lower abdominal quadrant b/l. Umbilicus shows erythema with mucopurulent drainage. Neurologic: no focal deficit, confused Additional Comments: A&Ox1. Musculoskeletal: no cyanosis, no clubbing Psychiatric: mood/affect appropriate, cooperative Results - Lab Results 09/02/18 06:01 09/02/18 06:01 Most recent lab results 09/02/18 09/02/18 09/02/18 06:01 06:01 08:29 ABG pH 7.42 ABG pCO2 24 L ABG pO2 67 L ABG HCO3 15 L ABG O2 Saturation 94 L Calcium 7.6 L Phosphorus 3.4 Magnesium 2.1 Consult Discharge Plan - Plan Referrals: NONE,PCP [Primary Care Provider] -
[2018-09-02] MEDS: Piperacillin/Tazobactam 3.375 GM in 0.9 % Sodium Chloride Mini Bag 100 ML IVPB SCH (14:22)
[2018-09-02] MEDS ORDERED: 0.9 % Sodium Chloride 1,000 ML IVC ONE (14:36)
[2018-09-02] MEDS ORDERED: Potassium Chloride 40 MEQ, Lidocaine 1% 2 ML in D5% in Water 500 ML IVPB ONE (14:49)
[2018-09-02] MEDS: Sodium Bicarbonate 75 MEQ in 0.45 % Sodium Chloride 1,000 ML IVC SCH (15:50)
[2018-09-02] MEDS ORDERED: Permethrin Cream Rinse 60 ML LIQUID TP ONE (16:46)
[2018-09-02] MEDS: Miconazole 2% ointment 114 GM TUBE TP SCH (20:47)
[2018-09-03] MEDS: Piperacillin/Tazobactam 3.375 GM in 0.9 % Sodium Chloride Mini Bag 100 ML IVPB SCH ×4 (00:39→23:34)
[2018-09-03] MEDS: Sodium Bicarbonate 75 MEQ in 0.45 % Sodium Chloride 1,000 ML IVC SCH ×3 (00:39→20:57)
--- NOTE | 2018-09-03 03:51 | Electrocardiograph Report ---
[facility] Test Date: 2018-09-02 Pat Name: Kiah Virgen Department: 110 Room: 2N13 Gender: F Caster Operator: Markie : 1950 Requested By: Salma Sanchez Order Number: [id number] Reading MD: Hermelindo Eisenberg Measurements Intervals Reading Rate: 103 P: NV: 0 QRS: -3 QRSD: 90 T: 39 QT: 343 QTc: 402 Interpretive Statements Sinus Rhythm. Electronically Signed On 09-03-2018 3:50:01 EDT by Hermelindo Eisenberg
[2018-09-03 05:47] LABS: Protein/Creatinine Ratio,Urine 0.44 mg/mg (0.00-0.20); Sodium, Urine 74.5 mEq/L
[2018-09-03 06:38] LABS: Adenovirus Not Detected (Not Detect); Bordetella Pertussis Not Detected (Not Detect); Chlamydophila pneumoniae Not Detected (Not Detect); Coronavirus 229E Not Detected (Not Detect); Coronavirus HKU1 Not Detected (Not Detect); Coronavirus NL63 Not Detected (Not Detect); Coronavirus OC43 Not Detected (Not Detect); Human Metapneumovirus Not Detected (Not Detect); Human Rhinovirus/Enterovirus Not Detected (Not Detect); Influenza A Subtype 2009 H1 Not Detected (Not Detect); Influenza A Untypeable Not Detected (Not Detect); Influenza B Not Detected (Not Detect); Mycoplasma pneumoniae Not Detected (Not Detect); Parainfluenza Virus 1 Not Detected (Not Detect); Parainfluenza Virus 2 Not Detected (Not Detect); Parainfluenza Virus 3 Not Detected (Not Detect); Parainfluenza Virus 4 Not Detected (Not Detect); Respiratory Syncytial Virus Not Detected (Not Detect)
[2018-09-03 07:15] LABS: Basophils % 0.2 %; Eosinophils # 0.1 K/mcL (0.0-0.6); Eosinophils % 1.6 %; Hematocrit 27.8 % (35.3-44.9); Hemoglobin 8.7 g/dL (11.5-15.4); Lymphocytes # 1.6 K/mcL (0.6-4.6); Lymphocytes % 32.4 %; Mean Corpuscular HGB Conc 31.3 g/dL (31.6-35.5); Mean Corpuscular Hemoglobin 26.9 pg (28.0-33.3); Mean Corpuscular Volume 86.1 fL (83.0-100.0); Mean Platelet Volume 9.9 fL (9.4-12.4); Monocytes # 0.5 K/mcL (0.0-1.3); Monocytes % 10.7 %; Neutrophils # 2.7 K/mcL (1.6-8.9); Platelet Count 164 K/mcL (140-400); Red Blood Count 3.23 M/mcL (3.82-4.97); Red Cell Distribution Width 17.8 % (11.5-14.5); Segmented Neutrophils % 54.1 %
[2018-09-03 07:39] LABS: Potassium 3.3 mEq/L (3.5-5.1)
[2018-09-03] MEDS ORDERED: Ketorolac 15 MG/ML VIAL IVP PRN (08:54)
[2018-09-03] MEDS ORDERED: OXYCODONE Oral CONC 10 MG/0.5 ML ORAL.SYG SL PRN (08:55)
[2018-09-03] MEDS: Insulin LISPRO 300 UNITS/3 ML VIAL SQ SCH ×3 (09:25→18:09)
[2018-09-03] MEDS: Aspirin Enteric Coated 81 MG Tablet PO SCH (09:44)
[2018-09-03] MEDS: Miconazole 2% ointment 114 GM TUBE TP SCH ×2 (09:44→20:59)
[2018-09-03] MEDS: Fluconazole 200 MG/100 ML 200 MG/100 ML BAG IVPB SCH (09:46)
--- NOTE | 2018-09-03 12:33 | Nephrology Progress Note ---
Date of Encounter: 09/03/18 Time of Encounter: 12:33 - Assessment and Plan (1) HERBER (acute kidney injury) Current Visit: Yes Status: Resolved Multifactorial HERBER . IMproving. continue current plan. Avoid nephrotoxic agents. Adjust medications as needed. Subjective Principal diagnosis: herber Interval history: Patent seen. No new complaint. Objective - Vital Signs Vital signs: Vital Signs Temp Pulse Resp BP Pulse Ox 09/03/18 11:42 98.3 F 70 18 101/55 92 09/03/18 09:45 92 09/03/18 08:28 99.3 F 73 18 94 09/03/18 04:46 98.5 F 74 16 90/50 93 09/02/18 23:39 98.2 F 82 18 101/59 95 09/02/18 19:37 98.2 F 80 18 106/56 97 09/02/18 17:09 98.1 F 76 18 97/48 95 Intake and Output 09/02/18 09/03/18 09/03/18 23:59 07:59 15:59 Intake Total 2641.0 / 4650.0 1175 / 2175 1000 / 2175 Output Total 1200 / 1200 400 / 400 Balance 1441.0 / 3450.0 775 / 1775 1000 / 1775 Intake: IV Fluids 2521.0 / 4050.0 1175 / 2175 1000 / 2175 0.9 % Sodium Chloride 1,000 ML 1000 / 1000 @ 250 mls/hr IVC .Q4H [facility] Rx#: [id number] 0.9 % Sodium Chloride 500 ML @ 500 / 500 999 mls/hr IVC .Q31M [facility] Rx#: [id number] Heparin 25,000 UNIT/250 ML D5W 121.0 / 250.0 25,000 unit In 250 ml @ 14 UNIT /KG/HR 14.974 mls/hr IVC . [id number] [facility] Rx#:[id number] Sodium Bicarbonate 75 MEQ In 0. 1075 / 2075 1000 / 2075 45% Sodium Chloride 1000 Ml 1000 Ml 1,000 ML @ 125 mls/hr IVC .[id number] [facility] Rx#:[id number] Zyvox Premix 600mg/300mL 600 mg 300 / 300 In 300 ml @ 150 mls/hr IVPB Q12H [facility] Rx#:[id number] Zosyn 3.375 GM In 0.9 % Sodium 100 / 100 100 / 100 Chloride (Mini-Bag +) 100 ML @ 25 mls/hr IVPB Q8HR [facility] Rx#: [id number] Vancocin 2,000 MG In 0.9 % 500 / 500 Sodium Chloride 500 ML @ 250 mls/hr IVPB ONCE [facility] Rx#: [id number] Oral 120 / 600 Output: Catheter 1200 / 1200 400 / 400 Other: Meal Dinner Percent of Meal Consumed 80% Weight 112.1 kg Blood Glucose* 156 111 Patient Weight 09/03/18 23:59 Weight 112.1 kg - General Appearance General appearance: Present: well-developed, well-nourished, obese EENT: Present: ATNC Neck: Present: supple Cardiology: Present: regular rate Gastrointestinal: Present: obese Neurologic: Present: alert and oriented x3 Psychiatric: Present: mood/affect appropriate - Lab 09/05/18 07:29 09/05/18 07:29 Most recent lab results 09/03/18 09/03/18 01:55 06:52 Calcium 7.0 L Urine Creatinine 61 Urine Sodium 74.5 Urine Total Protein 27 H Consult Discharge Plan - Plan Referrals: Erickson Lopez FACULTY HEAD [Advanced Practice Nurse] - 09/17/18 2:30 pm
--- NOTE | 2018-09-03 14:06 | Internal Med Progress Note ---
<Casa Anderson - Last Filed: 09/03/18 16:06> Hospitalist Progress Note - Encounter Date of Encounter: 09/03/18 Time of Encounter: 09:52 - Subjective Interval History: Patient seen and examined at bedside this morning. She states that overall her pain is worse today and she cannot get comfortable. She denies any symptoms of fevers, chills, nausea, vomiting. She states her wounds are unchanged from previous. Upon reevaluation approximately 1 hour later she is more comfortable and able to participate in exam. No concerns at this time. We did discuss anticoagulation options and given her kidney function, she is interested in pursuing Coumadin. - Exam Vitals: Temp Pulse Resp BP Pulse Ox 98.3 F 70 18 101/55 92 09/03/18 11:42 09/03/18 11:42 09/03/18 11:42 09/03/18 11:42 09/03/18 11:42 Exam: Gen.: Vitals noted. No acute distress. AAOx2, resting comfortably in bed. Morbidly obese HEENT: PERRL/EOMI, oropharynx clear, Normocephalic, atraumatic, MMM Cardiac: Irregularly irregular, no murmur, +S1/S2, 1+ BLE edema Pulmonary: CTA bilaterally, no wheezes, rales or rhonchi, equal chest expansion, unlabored breathing Abdomen: soft, tender to palpation in the lower regions, BS noted, no guarding, no palpable HSM Skin: warm and very dry, umbilicus with evidence of purulent drainage, pannus on underside does show significant moist-appearing erythema and scaling with no obvious drainage, however bandages to have a yellowish tinge. Limited exam due to patient's pain. MSK: ROM assessed, no joint swelling noted, gait no assessed while in bed. Non tender calf or clubbing Neuro: A&Ox2, moves all extremities, no focal deficits, sensation intact Psych: Appropriate mood and behavior, AOx2 - Assessment and Plan (1) Sepsis Current Visit: Yes Status: Acute Assessment and Plan: - Evidence of sepsis with tachycardia, tachypnea - Lactic acid within normal limits at 1.5 - Did not meet sepsis on admission. Now resolved. - Suspected source is panniculitis as well as potential UTI - Suspected organism: Most likely skin kieran vs fungal - WBC within normal limits 5.1 - Urinalysis shows positive nitrates, large leukocyte esterase however does have many epithelial cells. Culture pending - Blood cultures will be obtained this morning , prelim negative - Wound culture growing gram-positive cocci - Urine culture growing gram-negative lv - Physical exam does show severe panniculitis with seropurulent drainage. Due to nature of obvious purulent drainage in umbilicus - CT of the abdomen/pelvis 09/02 shows midline visceral fat containing hernias without complication, no intra-abdominal abnormality, small bowel shock and renal stones. - Wound care has been consulted - Patient was started on Zosyn and linezolid due to kidney function - Also received a dose of Unasyn and vancomycin Plan - Continue antibiotics of vancomycin and Zosyn, day #3 of therapy - Wound care - Continue fluconazole IV, day 2 (2) Panniculitis Current Visit: Yes Status: Acute Assessment and Plan: Sepsis as above (3) HERBER (acute kidney injury) Current Visit: Yes Status: Acute Assessment and Plan: Patient presents with a creatinine of 3.0 and GFR of 16. No reports of chronic kidney disease in patient's record however patient does admit to some history but is unsure stage. - Unclear if this is acute or chronic. - To catheter placed by nurse with a reported yellowish puslike drainage. Patient received fluid bolus in the ED. - Kidney function improved stated 51/1.75 - FeNA suggests a intrinsic etiology at 1.5% - Suspect that there is at least some component of prerenal etiology secondary to sepsis - Nephrology consulted, appreciate recommendations Plan - Nephrology recommends aggressive IV fluid hydration -Patient will likely need imaging with retroperitoneal US - Given this patient's renal function is improving with IV fluids, will continue at this time per nephro recommendations. Current fluids of 0.45% normal saline with 75 mEq of sodium bicarbonate - Suspect that this may be related to acute on chronic kidney injury with the etiology of sepsis and prerenal (4) Diabetes mellitus Current Visit: Yes Status: Acute Assessment and Plan: Blood glucose checks. Sliding scale insulin. Diabetic diet. Well-controlled since his admission in the s (5) Atrial fibrillation Current Visit: Yes Status: Acute Assessment and Plan: - Patient noted to be tachycardic on physical examination. - EKG was obtained which showed atrial fibrillation with rapid ventricular response. - Heart rate now better controlled and 70s and 80s -Telemetry - CHADVASC 5 (age, HTN, female, CHF, DM) -No home av dick blockers plan -We will start patient on heparin drip for stroke prophylaxis. - Discussed anticoagulation, patient agreeable to start Coumadin, will start first dose tonight - We will obtain old records from PCP regarding how long she has been in atrial fibrillation. - May require ischemic workup, possibly as outpatient - When necessary metoprolol IV push (6) CKD (chronic kidney disease) Current Visit: Yes Status: Suspected Assessment and Plan: suspet CKD as above. Will obtain records (7) UTI (urinary tract infection) Current Visit: Yes Status: Acute Assessment and Plan: - as above - Abx and cultures pending (8) Elevated troponin Current Visit: Yes Status: Acute Assessment and Plan: - Noted to be elevated today at 0.45, this was trended to 0.25 - Suspect this is likely secondary to demand ischemia in the setting of sepsis as above - Also noted patient was in nature fibrillation with RVR which has since reso lved - Patient was started on heparin drip due to A. fib - No previous history of CAD - Echocardiogram shows preserved ejection fraction with mild diastolic dysfunction Plan - We will continue monitor at this time - Will not trend troponins as it is our downtrending - EKG was obtained this morning and reviewed personally (9) Anemia Current Visit: Yes Status: Chronic Assessment and Plan: - Hemoglobin of 8.7 this morning which is down trending from 10.9 admission however stable from yesterday - Unclear baseline - It is noted that patient did receive fluids for sepsis and I suspect that this is likely a dilutional drop - No signs or symptoms of bleeding - Patient denies any symptoms - We will continue to monitor and transfuse if less than 7 DVT Prophylaxis: Heparin drip as above - Time Spent with Patient Total time spent is greater than 50% in coordination of care (as documented) at patient's floor/unit and/or counseling patient: Internal Medicine: Result - Labs CBC & Chem 7: 09/03/18 06:52 09/03/18 06:52 Labs: Short CBC 09/03/18 Range/Units 06:52 WBC 5.1 (4.3-11.1) K/mcL Hgb 8.7 L (11.5-15.4) g/dL Hct 27.8 L (35.3-44.9) % Plt Count 164 (140-400) K/mcL Neutrophils # 2.7 (1.6-8.9) K/mcL BMP 09/03/18 06:52 Sodium 143 Potassium 3.3 L Chloride 112 H Carbon Dioxide 22 L BUN 51 H Creatinine 1.75 H Glucose 106 H Calcium 7.0 L Cardiac Enzymes 09/02/18 Range/Units 13:41 Troponin I 0.25 H* (< 0.04) ng/mL - ABG Interpretation ABG results: ABG ABG pH 7.42 pH Units (7.32-7.45) 09/02/18 08:29 ABG pCO2 24 mmHg (35-45) L 09/02/18 08:29 ABG pO2 67 mmHg (85-104) L 09/02/18 08:29 ABG O2 Saturation 94 % (95-98) L 09/02/18 08:29 PT/INR, D-dimer PT 13.4 Seconds (9.4-12.1) H 09/02/18 06:01 Consult Discharge Plan - Plan Referrals: Erickson Lopez CLEAT MAKER [Advanced Practice Nurse] - 09/17/18 2:30 pm <Emma Rodriguez - Last Filed: 09/03/18 17:34> Hospitalist Progress Note - Encounter Date of Encounter: 09/03/18 - Exam Vitals: Temp Pulse Resp BP Pulse Ox 98.0 F 79 18 97/54 99 09/03/18 16:08 09/03/18 16:08 09/03/18 16:08 09/03/18 16:08 09/03/18 16:08 - Assessment and Plan (1) Panniculitis Current Visit: Yes Status: Acute (2) HERBER (acute kidney injury) Current Visit: Yes Status: Acute (3) Diabetes mellitus Current Visit: Yes Status: Acute (4) Atrial fibrillation Current Visit: Yes Status: Acute (5) Sepsis Current Visit: Yes Status: Acute (6) CKD (chronic kidney disease) Current Visit: Yes Status: Suspected (7) UTI (urinary tract infection) Current Visit: Yes Status: Acute (8) Elevated troponin Current Visit: Yes Status: Acute (9) Anemia Current Visit: Yes Status: Chronic - Time Spent with Patient Total time spent is greater than 50% in coordination of care (as documented) at patient's floor/unit and/or counseling patient: Internal Medicine: Result - Labs CBC & Chem 7: 09/03/18 06:52 09/03/18 06:52 Labs: Short CBC 09/03/18 Range/Units 06:52 WBC 5.1 (4.3-11.1) K/mcL Hgb 8.7 L (11.5-15.4) g/dL Hct 27.8 L (35.3-44.9) % Plt Count 164 (140-400) K/mcL Neutrophils # 2.7 (1.6-8.9) K/mcL BMP 09/03/18 06:52 Sodium 143 Potassium 3.3 L Chloride 112 H Carbon Dioxide 22 L BUN 51 H Creatinine 1.75 H Glucose 106 H Calcium 7.0 L - ABG Interpretation ABG results: ABG ABG pH 7.42 pH Units (7.32-7.45) 09/02/18 08:29 ABG pCO2 24 mmHg (35-45) L 09/02/18 08:29 ABG pO2 67 mmHg (85-104) L 09/02/18 08:29 ABG O2 Saturation 94 % (95-98) L 09/02/18 08:29 PT/INR, D-dimer PT 13.4 Seconds (9.4-12.1) H 09/02/18 06:01 - Attending Attestation I examined this patient and my medical decision-making was reviewed with the Resident Physician. I agree with the documented findings, disposition and treatment plan as described except to the extent set forth below. <Casa Anderson - Last Filed: 09/03/18 16:06> (1) Sepsis Qualifiers: Sepsis type: sepsis due to unspecified organism Qualified Code(s): A41.9 - Sepsis, unspecified organism (4) Diabetes mellitus Qualifiers: Diabetes mellitus type: type 2 Diabetes mellitus detention insulin use: unspecified terminal clerk insulin use status Diabetes mellitus complication status: with unspecified complications Qualified Code(s): E11.8 - Type 2 diabetes mellitus with unspecified complications (5) Atrial fibrillation Qualifiers: Atrial fibrillation type: paroxysmal Qualified Code(s): I48.0 - Paroxysmal atrial fibrillation (6) CKD (chronic kidney disease) Qualifiers: Chronic kidney disease stage: stage 3 (moderate) Qualified Code(s): N18.3 - Chronic kidney disease, stage 3 (moderate) (7) UTI (urinary tract infection) Qualifiers: Urinary tract infection type: acute cystitis Hematuria presence: with hematuria Qualified Code(s): N30.01 - Acute cystitis with hematuria (9) Anemia Qualifiers: Anemia type: unspecified type Qualified Code(s): D64.9 - Anemia, unspecified <Emma Rodriguez - Last Filed: 09/03/18 17:34> (3) Diabetes mellitus Qualifiers: Diabetes mellitus type: type 2 Diabetes mellitus terminal clerk insulin use: unspecified terminal clerk insulin use status Diabetes mellitus complication status: with unspecified complications Qualified Code(s): E11.8 - Type 2 diabetes mellitus with unspecified complications (4) Atrial fibrillation Qualifiers: Atrial fibrillation type: paroxysmal Qualified Code(s): I48.0 - Paroxysmal atrial fibrillation (5) Sepsis Qualifiers: Sepsis type: sepsis due to unspecified organism Qualified Code(s): A41.9 - Sepsis, unspecified organism (6) CKD (chronic kidney disease) Qualifiers: Chronic kidney disease stage: stage 3 (moderate) Qualified Code(s): N18.3 - Chronic kidney disease, stage 3 (moderate) (7) UTI (urinary tract infection) Qualifiers: Urinary tract infection type: acute cystitis Hematuria presence: with hematuria Qualified Code(s): N30.01 - Acute cystitis with hematuria (9) Anemia Qualifiers: Anemia type: unspecified type Qualified Code(s): D64.9 - Anemia, unspecified
[2018-09-03] MEDS: Heparin 25,000 UNIT/250 ML D5W 25,000 UNIT/250 ML IV.SOLN IVC SCH (15:19)
[2018-09-03] MEDS ORDERED: Warfarin perPT PO PRN (18:00)
[2018-09-03] MEDS ORDERED: *HR* Warfarin 2 MG TABLET PO ONE (18:00)
--- NOTE | 2018-09-03 18:36 | Electrocardiograph Report ---
[place] [id number] Test Date: 2018-09-02 Pat Name: Kiah Virgen Department: 110 Room: 2N13 Gender: F [place]: [place] : 1950 Requested By: Arthur Rodriguez Order Number: [id number] Reading MD: Rupa Hansen Measurements Intervals [place] Rate: 77 P: 76 WI: 178 QRS: -4 QRSD: 96 T: 22 QT: 403 QTc: 434 Interpretive Statements SINUS RHYTHM LOW QRS VOLTAGE IN PRECORDIAL LEADS [QRS DEFLECTION < 1.0 mV IN CHEST LEADS] Poor R wave progression in precordial leads Electronically Signed On 09-03-2018 18:34:55 EDT by Rupa Hansen
[2018-09-04 05:11] LABS: Basophils % 0.4 %; Eosinophils # 0.1 K/mcL (0.0-0.6); Eosinophils % 1.8 %; Hematocrit 26.8 % (35.3-44.9); Hemoglobin 8.3 g/dL (11.5-15.4); Immature Granulocytes % 1.8 % (0-4); Lymphocytes # 1.9 K/mcL (0.6-4.6); Lymphocytes % 38.2 %; Mean Corpuscular Hemoglobin 26.9 pg (28.0-33.3); Mean Corpuscular Volume 86.7 fL (83.0-100.0); Mean Platelet Volume 9.7 fL (9.4-12.4); Monocytes # 0.5 K/mcL (0.0-1.3); Monocytes % 10.1 %; Neutrophils # 2.4 K/mcL (1.6-8.9); Platelet Count 191 K/mcL (140-400); Red Blood Count 3.09 M/mcL (3.82-4.97); Red Cell Distribution Width 17.6 % (11.5-14.5); Segmented Neutrophils % 47.7 %
[2018-09-04 05:26] LABS: INR 1.2; Prothrombin Time 13.1 Seconds (9.4-12.1)
[2018-09-04 05:31] LABS: Calcium 6.5 mg/dL (8.6-10.3); Potassium 3.4 mEq/L (3.5-5.1)
[2018-09-04] MEDS: Sodium Bicarbonate 75 MEQ in 0.45 % Sodium Chloride 1,000 ML IVC SCH ×3 (05:52→20:47)
--- NOTE | 2018-09-04 08:23 | Internal Med Progress Note ---
<Cecelia Angeles - Last Filed: 09/04/18 12:30> Hospitalist Progress Note - Encounter Date of Encounter: 09/04/18 - Exam Vitals: Temp Pulse Resp BP Pulse Ox 98.0 F 72 16 105/57 95 09/04/18 11:43 09/04/18 11:43 09/04/18 11:43 09/04/18 11:43 09/04/18 11:43 - Assessment and Plan (1) Panniculitis Current Visit: Yes Status: Acute (2) HERBER (acute kidney injury) Current Visit: Yes Status: Acute (3) Diabetes mellitus Current Visit: Yes Status: Acute (4) Atrial fibrillation Current Visit: Yes Status: Acute (5) Sepsis Current Visit: Yes Status: Acute (6) CKD (chronic kidney disease) Current Visit: Yes Status: Suspected (7) UTI (urinary tract infection) Current Visit: Yes Status: Acute (8) Elevated troponin Current Visit: Yes Status: Acute (9) Anemia Current Visit: Yes Status: Chronic - Time Spent with Patient Total time spent is greater than 50% in coordination of care (as documented) at patient's floor/unit and/or counseling patient: Internal Medicine: Result - Labs CBC & Chem 7: 09/04/18 04:28 09/04/18 04:28 Labs: Short CBC 09/04/18 Range/Units 04:28 WBC 5.0 (4.3-11.1) K/mcL Hgb 8.3 L (11.5-15.4) g/dL Hct 26.8 L (35.3-44.9) % Plt Count 191 (140-400) K/mcL Neutrophils # 2.4 (1.6-8.9) K/mcL BMP 09/04/18 04:28 Sodium 143 Potassium 3.4 L Chloride 111 H Carbon Dioxide 23 BUN 32 H Creatinine 1.36 H Glucose 106 H Calcium 6.5 L Urine 09/02/18 Range/Units 00:00 Urine Color Yellow (Yellow) Urine Clarity Turbid A (Clear) Urine pH 6.0 (5.0-8.0) pH Units Ur Specific [place] 1.016 (1.010-1.025) Urine Protein 100 H (Neg-Trace) mg/dL Urine Glucose (UA) Normal (Normal) mg/dL - ABG Interpretation ABG results: ABG ABG pH 7.42 pH Units (7.32-7.45) 09/02/18 08:29 ABG pCO2 24 mmHg (35-45) L 09/02/18 08:29 ABG pO2 67 mmHg (85-104) L 09/02/18 08:29 ABG O2 Saturation 94 % (95-98) L 09/02/18 08:29 PT/INR, D-dimer PT 13.1 Seconds (9.4-12.1) H 09/04/18 04:28 Consult Discharge Plan - Plan Referrals: Erickson Lopez TIER OVER [Advanced Practice Nurse] - 09/17/18 2:30 pm - Attending Attestation I examined this patient and my medical decision-making was reviewed with the Resident Physician Dr Anderson. I agree with the documented findings, disposition and treatment plan as described except to the extent set forth below. Ms Virgen is admitted with sepsis 2/2 UTI and severe candidiasis/panniculitis She developed reportedly new afib this admission awake, states she is overall feeling better, can't say how, just generally better. no pain, fevers or chills. no cp, palpitations or sob. poor energy. gen- alert, awake,appears stated age, obese eyes- pupils equal round cv- reg rate and irreg/irreg rhythm,no le pitting edema lungs- ctabl, no wheezing, rhonchi or crackles in ant/lat lynch, normal resp effort on room air abd- soft, non tender, non distended, + bs skin- dishisence of skin in umbilicus, dried brown drainage, abd folds with gauze in place with dried brown drainage neuro- AAOx3 Sepsis 2/2 UTI and severe candidiasis/paniculitis, resolved CAndidiasis pannus folds Panniculitis covering for both fungal and bacterial infection -cont fluconazole + zosyn, topical miconazole -surg consult for opening of skin in umbilicus with drainage -following cxs Possible HERBER, baseline creat unknown, prerenal + intrinsic- nephro following, appreciate recs, cont fluids, outpt recs remain pending Suspected new onset afib with trop elevation in setting of sepsis- rate controlled without AVN amy, hep gtt bridge to therapeutic INR on coumadin dosed by pharm, keep K at 4 and mag at 2- po k today and IV mag , will require outpt fu with pcp for outpt stress testing when not acutely ill further diagnoses and plan as noted by resident <Casa Anderson - Last Filed: 09/04/18 16:35> Hospitalist Progress Note - Encounter Date of Encounter: 09/04/18 Time of Encounter: 10:10 - Subjective Interval History: Patient was seen and examined at bedside this morning. She states overall she is feeling much better from previous. Her pain is decreased and she is able to lay more comfortably in bed. She denies any symptoms of fevers, chills, nausea, vomiting. She tolerated breakfast well. She has not noticed any increasing drainage from her wounds. - Exam Vitals: Temp Pulse Resp BP Pulse Ox 98.2 F 72 16 121/72 95 09/04/18 07:44 09/04/18 07:44 09/04/18 07:44 09/04/18 07:44 09/04/18 07:44 Exam: Gen.: Vitals noted. No acute distress. AAOx2, resting comfortably in bed. Morbidly obese HEENT: PERRL/EOMI, oropharynx clear, Normocephalic, atraumatic, MMM Cardiac: Irregularly irregular, no murmur, +S1/S2, 1+ BLE edema Pulmonary: CTA bilaterally, no wheezes, rales or rhonchi, equal chest expansion, unlabored breathing Abdomen: soft, tender to palpation in the lower regions but improved, BS noted, no guarding, no palpable HSM Skin: warm and very dry, umbilicus with evidence of purulent drainage improved, pannus on underside does show significant more dry-appearing erythema and scaling with no obvious drainage. MSK: ROM assessed, no joint swelling noted, gait no assessed while in bed. Non tender calf or clubbing Neuro: A&Ox2, moves all extremities, no focal deficits, sensation intact Psych: Appropriate mood and behavior, AOx2 - Assessment and Plan (1) Sepsis Current Visit: Yes Status: Acute Assessment and Plan: - Evidence of sepsis with tachycardia, tachypnea - Lactic acid within normal limits at 1.5 - Did not meet sepsis on admission. Now resolved. - Suspected source is panniculitis as well as potential UTI - Suspected organism: Most likely skin kieran vs fungal - WBC within normal limits 5.0 - Urinalysis shows positive nitrates, large leukocyte esterase however does have many epithelial cells. Culture Escherichia coli and other gram-negative lv - Blood cultures will be obtained this morning , prelim negative - Wound culture growing gram-positive cocci - Urine culture growing gram-negative lv, Escherichia coli - Physical exam does show severe panniculitis with seropurulent drainage. Due to nature of obvious purulent drainage in umbilicus - CT of the abdomen/pelvis 09/02 shows midline visceral fat containing hernias without complication, no intra-abdominal abnormality, small bowel shock and re nal stones. - Wound care has been consulted - Gen. surgery evaluated today and will see as outpatient.. Drainage from Carla likely due to increased pressure and edema - Patient was started on Zosyn and linezolid due to kidney function - Also received a dose of Unasyn and vancomycin - Vancomycin discontinued Due to negative MRSA swab Plan - Continue antibiotics of Zosyn, day #4 of therapy - Wound care - Continue fluconazole IV, day 3 (2) Panniculitis Current Visit: Yes Status: Acute Assessment and Plan: Sepsis as above (3) HERBER (acute kidney injury) Current Visit: Yes Status: Acute Assessment and Plan: Patient presents with a creatinine of 3.0 and GFR of 16. No reports of chronic kidney disease in patient's record however patient does admit to some history but is unsure stage. - Unclear if this is acute or chronic. - To catheter placed by nurse with a reported yellowish puslike drainage. Patient received fluid bolus in the ED. - Kidney function improved with today of 32/1.36 - FeNA suggests a intrinsic etiology at 1.5% - Suspect that there is at least some component of prerenal etiology secondary to sepsis - Nephrology consulted, appreciate recommendations Plan - Nephrology recommends aggressive IV fluid hydration- after discussing with nephrology today, will continue 0.45% and numbness with sodium bicarbonate for 1 additional day and monitor. -Patient will likely need imaging with retroperitoneal US - Given this patient's renal function is improving with IV fluids, will continue at this time per nephro recommendations. Current fluids of 0.45% normal saline with 75 mEq of sodium bicarbonate - Suspect that this may be related to acute on chronic kidney injury with the etiology of sepsis and prerenal - Continue treatment of sepsis and UTI (4) Diabetes mellitus Current Visit: Yes Status: Acute Assessment and Plan: Blood glucose checks. Sliding scale insulin. Diabetic diet. Well-controlled since his admission in the 100s (5) Atrial fibrillation Current Visit: Yes Status: Acute Assessment and Plan: - Patient noted to be tachycardic on physical examination. - EKG was obtained which showed atrial fibrillation with rapid ventricular response. - Heart rate now better controlled and 70s and 80s -Telemetry - CHADVASC 5 (age, HTN, female, CHF, DM) -No home av dick blockers - Patient states that this is new for her plan -We will start patient on heparin drip for stroke prophylaxis. - Discussed anticoagulation, patient agreeable to start Coumadin, will start. I NR 1.2 this morning - We will obtain old records from PCP regarding how long she has been in atrial fibrillation. - May require ischemic workup, possibly as outpatient - When necessary metoprolol IV push (6) CKD (chronic kidney disease) Current Visit: Yes Status: Suspected Assessment and Plan: suspet CKD as above. Will obtain records (7) UTI (urinary tract infection) Current Visit: Yes Status: Acute Assessment and Plan: - as above - Abx and cultures pending (8) Elevated troponin Current Visit: Yes Status: Acute Assessment and Plan: - Noted to be elevated today at 0.45, this was trended to 0.25 - Suspect this is likely secondary to demand ischemia in the setting of sepsis as above - Also noted patient was in nature fibrillation with RVR which has since resolved - Patient was started on heparin drip due to A. fib - No previous history of CAD - Echocardiogram shows preserved ejection fraction with mild diastolic dysfunction Plan - We will continue monitor at this time - Will not trend troponins as it is our downtrending - EKG was obtained this morning and reviewed personally (9) Anemia Current Visit: Yes Status: Chronic Assessment and Plan: - Hemoglobin of 8.3 this morning which is down trending from 10.9 admission however stable from yesterday - Unclear baseline - It is noted that patient did receive fluids for sepsis and I suspect that this is likely a dilutional drop - No signs or symptoms of bleeding - Patient denies any symptoms - We will continue to monitor and transfuse if less than 7 - Time Spent with Patient Total time spent is greater than 50% in coordination of care (as documented) at patient's floor/unit and/or counseling patient: Internal Medicine: Result - Labs CBC & Chem 7: 09/04/18 04:28 09/04/18 04:28 Labs: Short CBC 09/04/18 Range/Units 04:28 WBC 5.0 (4.3-11.1) K/mcL Hgb 8.3 L (11.5-15.4) g/dL Hct 26.8 L (35.3-44.9) % Plt Count 191 (140-400) K/mcL Neutrophils # 2.4 (1.6-8.9) K/mcL BMP 09/04/18 04:28 Sodium 143 Potassium 3.4 L Chloride 111 H Carbon Dioxide 23 BUN 32 H Creatinine 1.36 H Glucose 106 H Calcium 6.5 L Urine 09/02/18 Range/Units 00:00 Urine Color Yellow (Yellow) Urine Clarity Turbid A (Clear) Urine pH 6.0 (5.0-8.0) pH Units Ur Specific [place] 1.016 (1.010-1.025) Urine Protein 100 H (Neg-Trace) mg/dL Urine Glucose (UA) Normal (Normal) mg/dL - ABG Interpretation ABG results: ABG ABG pH 7.42 pH Units (7.32-7.45) 09/02/18 08:29 ABG pCO2 24 mmHg (35-45) L 09/02/18 08:29 ABG pO2 67 mmHg (85-104) L 09/02/18 08:29 ABG O2 Saturation 94 % (95-98) L 09/02/18 08:29 PT/INR, D-dimer PT 13.1 Seconds (9.4-12.1) H 09/04/18 04:28 ___ <Cecelia Angeles - Last Filed: 09/04/18 12:30> (3) Diabetes mellitus Qualifiers: Diabetes mellitus type: type 2 Diabetes mellitus detention insulin use: unspecified detention insulin use status Diabetes mellitus complication status: with unspecified complications Qualified Code(s): E11.8 - Type 2 diabetes mellitus with unspecified complications (4) Atrial fibrillation Qualifiers: Atrial fibrillation type: paroxysmal Qualified Code(s): I48.0 - Paroxysmal atrial fibrillation (5) Sepsis Qualifiers: Sepsis type: sepsis due to unspecified organism Qualified Code(s): A41.9 - Sepsis, unspecified organism (6) CKD (chronic kidney disease) Qualifiers: Chronic kidney disease stage: stage 3 (moderate) Qualified Code(s): N18.3 - Chronic kidney disease, stage 3 (moderate) (7) UTI (urinary tract infection) Qualifiers: Urinary tract infection type: acute cystitis Hematuria presence: with hematuria Qualified Code(s): N30.01 - Acute cystitis with hematuria (9) Anemia Qualifiers: Anemia type: unspecified type Qualified Code(s): D64.9 - Anemia, unspecified <Casa Anderson - Last Filed: 09/04/18 16:35> (1) Sepsis Qualifiers: Sepsis type: sepsis due to unspecified organism Qualified Code(s): A41.9 - Sepsis, unspecified organism (4) Diabetes mellitus Qualifiers: Diabetes mellitus type: type 2 Diabetes mellitus oil heaterman insulin use: unspecified detention insulin use status Diabetes mellitus complication status: with unspecified complications Qualified Code(s): E11.8 - Type 2 diabetes mellitus with unspecified complications (5) Atrial fibrillation Qualifiers: Atrial fibrillation type: paroxysmal Qualified Code(s): I48.0 - Paroxysmal atrial fibrillation (6) CKD (chronic kidney disease) Qualifiers: Chronic kidney disease stage: stage 3 (moderate) Qualified Code(s): N18.3 - Chronic kidney disease, stage 3 (moderate) (7) UTI (urinary tract infection) Qualifiers: Urinary tract infection type: acute cystitis Hematuria presence: with hematuria Qualified Code(s): N30.01 - Acute cystitis with hematuria (9) Anemia Qualifiers: Anemia type: unspecified type Qualified Code(s): D64.9 - Anemia, unspecified
[2018-09-04] MEDS: Insulin LISPRO 300 UNITS/3 ML VIAL SQ SCH ×3 (08:44→16:33)
[2018-09-04] MEDS: Fluconazole 200 MG/100 ML 200 MG/100 ML BAG IVPB SCH (08:44)
[2018-09-04] MEDS: Piperacillin/Tazobactam 3.375 GM in 0.9 % Sodium Chloride Mini Bag 100 ML IVPB SCH ×2 (08:46→16:33)
[2018-09-04] MEDS: Heparin 25,000 UNIT/250 ML D5W 25,000 UNIT/250 ML IV.SOLN IVC SCH (08:47)
[2018-09-04 08:50] LABS: Magnesium 1.6 mg/dL (1.6-2.6)
[2018-09-04] MEDS: Miconazole 2% ointment 114 GM TUBE TP SCH ×2 (09:02→20:47)
[2018-09-04] MEDS: Aspirin Enteric Coated 81 MG Tablet PO SCH (09:02)
--- NOTE | 2018-09-04 09:59 | Nephrology Progress Note ---
Date of Encounter: 09/04/18 Time of Encounter: 09:45 - Assessment and Plan (1) HERBER (acute kidney injury) Current Visit: Yes Status: Acute Creatinine has improved from 1.75 down to 1.36. FeNa of 1.5% with likely pre- renal and instrinic pathology. Setting of hypo-perfusion from sepsis. CT of the abdomen shows there is a punctate nonobstructing stone measuring approximately 2 mm in size in the upper pole of the left kidney. There is another small 2 mm nonobstructing stone in the mid to upper pole of the left kidney. No evidence of hydronephrosis. Urine eosinophils were negative. I/O = 4144/1200. UOP = 0.4 cc/kg/hr. On 0.45% NaCL with 75 meq NaHCO3 125 ml/HR. - Renal dose antibiotics and medications. - Avoid nephrotoxins. - Continue aggressive IVF. (2) Hypokalemia Current Visit: Yes Status: Acute Potassium of 3.4. 40 meq of KCl given by primary team this morning. - Recheck K+ in the AM tomorrow. (3) Anemia Current Visit: Yes Status: Chronic Hgb seems to be downtrending since admission. 10.9 on admission, now at 8.3. Ca use could be a dilution affect from the aggressive IVF, possible CKD, or iron deficiency. - Order iron profile. If iron deficient, will put on supplements. Qualifiers: Anemia type: unspecified type Qualified Code(s): D64.9 - Anemia, unspecif ied (4) Atrial fibrillation Current Visit: Yes Status: Acute Qualifiers: Atrial fibrillation type: paroxysmal Qualified Code(s): I48.0 - Paroxysmal atrial fibrillation (5) Panniculitis Current Visit: Yes Status: Acute Subjective Interval history: When seen this morning, the patient denied any fever, cough, or SOB. She denied any chest pain. Denied any abdominal pain, nausea, or vomiting. Denied any swelling in her LE. Patient was A&Ox2: oriented to name, wasn't able to recall the year however she knew who the president was, knew the month, and was orien fifi to situation. This seems like an improvement from 2 days ago. Objective - Vital Signs Vital signs: Vital Signs Temp Pulse Resp BP Pulse Ox 09/04/18 07:44 98.2 F 72 16 121/72 95 09/04/18 05:24 98.1 F 74 16 105/52 92 09/04/18 00:21 97.9 F 79 18 101/50 93 09/03/18 21:00 96 09/03/18 20:36 98.4 F 82 18 103/57 96 09/03/18 20:00 81 09/03/18 16:08 98.0 F 79 18 97/54 99 09/03/18 11:42 98.3 F 70 18 101/55 92 Intake and Output 09/03/18 09/04/18 09/04/18 23:59 07:59 15:59 Intake Total 1259.9 / 4144.9 1275 / 1440.1 165.1 / 1440.1 Output Total 800 / 1200 900 / 900 Balance 459.9 / 2944.9 375 / 540.1 165.1 / 540.1 Intake: IV Fluids 1259.9 / 3784.9 1275 / 1440.1 165.1 / 1440.1 Heparin 25,000 UNIT/250 ML D5W 84.9 / 334.9 165.1 / 165.1 25,000 unit In 250 ml @ 14 UNIT /KG/HR 14.974 mls/hr IVC . [id number] JESSICA Rx#:[id number] Sodium Bicarbonate 75 MEQ In 0. 1075 / 3150 1075 / 1075 45% Sodium Chloride 1000 Ml 1000 Ml 1,000 ML @ 125 mls/hr IVC .[id number] JESSICA Rx#:[id number] Diflucan Premix 200 MG/100 ML 100 / 100 200 mg In 100 ml @ 100 mls/hr IVPB DAILY JESSICA Rx#:[id number] Zosyn 3.375 GM In 0.9 % Sodium 100 / 300 100 / 100 Chloride (Mini-Bag +) 100 ML @ 25 mls/hr IVPB Q8HR JESSICA Rx#: [id number] Output: Urine 900 / 900 Catheter 800 / 1200 Other: Stool Size Moderate Moderate Stool Consistency loose loose Stool Color Brown Brown # Bowel Movements 1 1 Blood Glucose* 190 110 - General Appearance General appearance: Present: appears started age, obese EENT: Present: mucous membranes moist Neck: Present: no JVD Respiratory: Present: clear Cardiology: Present: holosystolic murmur, no rub, no gallops, no edema, regular rate, regular rhythm, normal S1, normal S2 Gastrointestinal: Present: normoactive bowel sounds, no tenderness, no guarding, no organomegaly, no masses Integumentary: Present: rash, warm and dry Additional Comments: Located in the lower abdominal quadrants and suprapubic regions b/l. Also present in umbilicus. Minor signs of mucopurulent drainage. Seems to be improving. Neurologic: Present: no focal deficit Additional Comments: A&Ox2. Musculoskeletal: Present: no deformities, no cyanosis, no clubbing Psychiatric: Present: mood/affect appropriate, cooperative - Lab 09/04/18 04:28 09/04/18 04:28 Most recent lab results 09/04/18 04:28 Calcium 6.5 L Magnesium 1.6 Consult Discharge Plan - Plan Referrals: Erickson Lopez CNP [Advanced Practice Nurse] - 09/17/18 2:30 pm
[2018-09-04 11:32] LABS: % Iron Saturation 35 % (15-50); Iron 70 mcg/dL (50-170); Transferrin 144 mg/dL (203-362)
--- NOTE | 2018-09-04 12:20 | AcuteCare Surgery Consult Note ---
Date of Encounter: 09/04/18 Time of Encounter: 12:15 Assessment and Plan (1) Panniculitis Current Visit: Yes Status: Acute 67F with tenderness along pannus, likely related to panniculitis; in addition she also has some breakdown of the skin which also contributes to her discomfort which is related to the moisture trapping within the pannus, leading to skin breakdown and erythema and panniculitis; IV abx: recommend treating for MRSA keep pannus region dry: clean daily with soap and water then apply ABD pad; also helps with pressure off loading recommend weight loss regimen to assist with over all health and management of pannus okay to use antifungal powder to keep dry general surgery will sign off, but please call back if there are any new q uestions or concerns; (2) Open wound of umbilical region Current Visit: Yes Status: Acute 67F with TTP along umbilicus; patient has a hernia, both on exam and on imaging which is causing pressure on the skin due to the size and the intraabdominal pressure; clean daily with soap and water keep area dry; okay to apply antifungal powder; okay to apply guaze for the moisture recommend follow up in my wound clinic 2 weeks after discharge no acute surgery; general surgery will sign off Qualifiers: Encounter type: initial encounter Qualified Code(s): S31.105A - Unspecified open wound of abdominal wall, periumbilic region without penetration into peritoneal cavity, initial encounter History of Present Illness Consult date: 09/04/18 Reason for consult: other (cellulitis) History of present illness: 67F PMH significant for DM, HTN, HLD, CVA who presents with a UTI with asso ciated sepsis. In addition the patient was also found to have redness with concern for cellulitis along her pannus as well as her umbilicus. Currently afebril, normal blood pressure with no requirement for pressors. A CT scan was obtained, which was reviewed and interpreted by me, which demonstrated an umbilical hernia with associated skin breakdown likely from pressure and a wound within his umbilical fold. Furthermore she also has skin breakdown beneath her pannus. When discussing with the patient she states that she has not notoiced any changes until about two weeks ago. Since then her symptoms have progressed to point of tenderness along her umbilicus and pannus. General surgery was consulted for management recommendations. Past Med Surg Social Fam HX - Past Medical History Medical history: CVA, diabetes, hyperlipidemia, hypertension - Social History Smoking Status: Never smoker Smokeless Tobacco Status: No Alcohol use: none Drug use: none Medications and Allergies Alendronate Sodium 70 mg PO SA 09/01/18 [History] Aspirin [Lo-Dose Aspirin EC] 81 mg PO DAILY 09/01/18 [History] Atorvastatin [Lipitor] 20 mg PO HS 09/01/18 [History] Ibuprofen [Ibu] 800 mg PO TID 09/01/18 [History] Insulin Glargine [Lantus] 60 unit SQ HS 09/01/18 [History] Lisinopril-HCTZ 10-12.5 [Prinzide 10-12.5] 2 each PO DAILY 09/01/18 [History] Oxybutynin [Ditropan] 5 mg PO BID 09/01/18 [History] Pioglitazone [Actos] 15 mg PO 0800 09/01/18 [History] Allergy/AdvReac Type Severity Reaction Status Date / Time acetaminophen [From Vicodin] AdvReac Vomiting Verified 09/01/18 20:52 hydrocodone [From Vicodin] AdvReac Vomiting Verified 09/01/18 20:52 Review of Systems All systems PM: 12 point ROS negative besides HPI findings General Surgery Exam Initial Vital Signs Temp Pulse Resp BP Pulse Ox 98.1 F 101 18 110/81 97 09/01/18 18:27 09/01/18 18:27 09/01/18 18:27 09/01/18 18:27 09/01/18 18:27 - General physical appearance no distress - Eyes PERRL, normal ocular movement - ENT normocephalic - Neck trachea midline, no lymphadectomy - Respiratory normal expansion, normal respiratory effort - Cardiovascular Cardiovascular exam: Present: RRR - Abdomen Abdomen general surgery: Present: soft, tender (along umbilicus at the base; associated redness and pressure ulcer; fibrinous drainage and turbid fluid; no abscess; ) Exam Initial Vital Signs Temp Pulse Resp BP Pulse Ox 98.1 F 101 18 110/81 97 09/01/18 18:27 09/01/18 18:27 09/01/18 18:27 09/01/18 18:27 09/01/18 18:27 Results - Labs 09/04/18 04:28 09/04/18 04:28 Abnormal lab results RBC 3.09 M/mcL (3.82-4.97) L 09/04/18 04:28 Hgb 8.3 g/dL (11.5-15.4) L 09/04/18 04:28 Hct 26.8 % (35.3-44.9) L 09/04/18 04:28 MCH 26.9 pg (28.0-33.3) L 09/04/18 04:28 MCHC 31.0 g/dL (31.6-35.5) L 09/04/18 04:28 RDW 17.6 % (11.5-14.5) H 09/04/18 04:28 PT 13.1 Seconds (9.4-12.1) H 09/04/18 04:28 Heparin Anti-Xa, Unfract 0.01 IU/mL (0.30-0.70) L 09/02/18 06:01 ABG pCO2 24 mmHg (35-45) L 09/02/18 08:29 ABG pO2 67 mmHg (85-104) L 09/02/18 08:29 ABG HCO3 15 mEq/L (21-27) L 09/02/18 08:29 ABG Total CO2 16 mEq/L (20-26) L 09/02/18 08:29 ABG O2 Saturation 94 % (95-98) L 09/02/18 08:29 ABG Base Excess -8 mEq/L (-2 to 3) L 09/02/18 08:29 Sodium 133 mEq/L (136-145) L 09/01/18 19:12 Potassium 3.4 mEq/L (3.5-5.1) L 09/04/18 04:28 Chloride 111 mEq/L (98-107) H 09/04/18 04:28 Carbon Dioxide 22 mEq/L (23-29) L 09/03/18 06:52 BUN 32 mg/dL (8-23) H 09/04/18 04:28 1.36 mg/dL (0.60-1.20) H 09/04/18 04:28 Est GFR ( Amer) 47 (> 60) L 09/04/18 04:28 Est GFR (Non-Af Amer) 39 (> 60) L 09/04/18 04:28 29 (6-26) H 09/03/18 06:52 Glucose 106 mg/dL (70-105) H 09/04/18 04:28 POC Glucose 190 mg/dL (70-99) H 09/03/18 20:43 303 (280-300) H 09/04/18 04:28 Calcium 6.5 mg/dL (8.6-10.3) L 09/04/18 04:28 144 mg/dL (203-362) L 09/04/18 10:51 0.25 ng/mL (< 0.04) H* 09/02/18 13:41 5.1 g/dL (6.4-8.9) L 09/02/18 06:01 2.5 g/dL (3.5-5.7) L 09/02/18 06:01 1.0 (1.1-2.2) L 09/02/18 06:01 Turbid (Clear) A 09/02/18 00:00 100 mg/dL (Neg-Trace) H 09/02/18 00:00 Large (Negative) H 09/02/18 00:00 Positive (Negative) A 09/02/18 00:00 Ur Leukocyte Esterase Large (Negative) H 09/02/18 00:00 5-15 per hpf (0-3) H 09/02/18 00:00 TNTC per hpf (0-3) H 09/02/18 00:00 Ur Squamous Epith Cells Many per lpf (None-Few) H 09/02/18 00:00 Many per hpf (None-Few) H 09/02/18 00:00 Ur Culture Indicated? YES (NO) A 09/02/18 00:00 Protein/Creatinin Ratio 0.44 mg/mg (0.00-0.20) H 09/03/18 01:55 27 mg/dL (1-14) H 09/03/18 01:55 Diabetes panel 09/04/18 Range/Units 04:28 Sodium 143 (136-145) mEq/L Potassium 3.4 L (3.5-5.1) mEq/L Chloride 111 H (98-107) mEq/L Carbon Dioxide 23 (23-29) mEq/L BUN 32 H (8-23) mg/dL Creatinine 1.36 H (0.60-1.20) mg/dL Glucose 106 H (70-105) mg/dL Calcium 6.5 L (8.6-10.3) mg/dL Calcium panel 09/04/18 Range/Units 04:28 Calcium 6.5 L (8.6-10.3) mg/dL Pituitary panel 09/04/18 Range/Units 04:28 Sodium 143 (136-145) mEq/L Potassium 3.4 L (3.5-5.1) mEq/L Chloride 111 H (98-107) mEq/L Carbon Dioxide 23 (23-29) mEq/L BUN 32 H (8-23) mg/dL Creatinine 1.36 H (0.60-1.20) mg/dL Glucose 106 H (70-105) mg/dL Calcium 6.5 L (8.6-10.3) mg/dL Adrenal panel 09/04/18 Range/Units 04:28 Sodium 143 (136-145) mEq/L Potassium 3.4 L (3.5-5.1) mEq/L Chloride 111 H (98-107) mEq/L Carbon Dioxide 23 (23-29) mEq/L BUN 32 H (8-23) mg/dL Creatinine 1.36 H (0.60-1.20) mg/dL Glucose 106 H (70-105) mg/dL Calcium 6.5 L (8.6-10.3) mg/dL All other labs normal. Consult Discharge Plan - Plan Referrals: Erickson Lopez CNP [Advanced Practice Nurse] - 09/17/18 2:30 pm
[2018-09-04] MEDS ORDERED: *HR* Warfarin 5 MG TABLET PO ONE (18:00)
[2018-09-05] MEDS: Heparin 25,000 UNIT/250 ML D5W 25,000 UNIT/250 ML IV.SOLN IVC SCH ×3 (00:25→17:09)
[2018-09-05] MEDS: Sodium Bicarbonate 75 MEQ in 0.45 % Sodium Chloride 1,000 ML IVC SCH (00:26)
[2018-09-05] MEDS: Piperacillin/Tazobactam 3.375 GM in 0.9 % Sodium Chloride Mini Bag 100 ML IVPB SCH ×3 (00:29→17:03)
--- NOTE | 2018-09-05 07:43 | Internal Med Progress Note ---
<Cecelia Angeles - Last Filed: 09/05/18 12:49> Hospitalist Progress Note - Encounter Date of Encounter: 09/05/18 - Exam Vitals: Temp Pulse Resp BP Pulse Ox 98.9 F 68 18 121/65 95 09/05/18 11:32 09/05/18 11:32 09/05/18 11:32 09/05/18 11:32 09/05/18 11:32 - Assessment and Plan (1) Panniculitis Current Visit: Yes Status: Acute (2) HERBER (acute kidney injury) Current Visit: Yes Status: Acute (3) Diabetes mellitus Current Visit: Yes Status: Acute (4) Atrial fibrillation Current Visit: Yes Status: Acute (5) Sepsis Current Visit: Yes Status: Acute (6) CKD (chronic kidney disease) Current Visit: Yes Status: Suspected (7) UTI (urinary tract infection) Current Visit: Yes Status: Acute (8) Elevated troponin Current Visit: Yes Status: Acute (9) Anemia Current Visit: Yes Status: Chronic - Time Spent with Patient Total time spent is greater than 50% in coordination of care (as documented) at patient's floor/unit and/or counseling patient: Internal Medicine: Result - Labs CBC & Chem 7: 09/05/18 07:29 09/05/18 07:29 Labs: Short CBC 09/05/18 Range/Units 07:29 WBC 5.1 (4.3-11.1) K/mcL Hgb 8.5 L (11.5-15.4) g/dL Hct 27.7 L (35.3-44.9) % Plt Count 222 (140-400) K/mcL Neutrophils # 2.5 (1.6-8.9) K/mcL BMP 09/05/18 07:29 Sodium 143 Potassium 3.7 Chloride 108 H Carbon Dioxide 25 BUN 20 Creatinine 1.20 Glucose 89 Calcium 6.7 L - ABG Interpretation ABG results: ABG ABG pH 7.42 pH Units (7.32-7.45) 09/02/18 08:29 ABG pCO2 24 mmHg (35-45) L 09/02/18 08:29 ABG pO2 67 mmHg (85-104) L 09/02/18 08:29 ABG O2 Saturation 94 % (95-98) L 09/02/18 08:29 PT/INR, D-dimer PT 12.8 Seconds (9.4-12.1) H 09/05/18 07:29 Consult Discharge Plan - Plan Referrals: Erickson Lopez BELL CLERK [Advanced Practice Nurse] - 09/17/18 2:30 pm - Attending Attestation I examined this patient and my medical decision-making was reviewed with the Resident Physician Dr Anderson. I agree with the documented findings, disposition and treatment plan as described except to the extent set forth below. Ms Virgen is admitted with sepsis 2/2 UTI and severe candidiasis/panniculitis She developed reportedly new afib this admission awake, feeling tired, no fevers or chills. no abd pain or itching. denies palpitations or chest pain. no sob. would be agreeable to discussing snf placement with sw gen- alert, awake,appears stated age, obese cv- reg rate and reg rhythm,no le pitting edema lungs- ctabl, no wheezing, rhonchi or crackles in ant/lat lynch, normal resp effort on room air abd- soft, non tender, non distended skin- dehiscence of skin in umbilicus, no drainage, abd folds with gauze in place neuro- AAOx3 Sepsis 2/2 UTI and severe candidiasis/paniculitis, resolved Candidiasis pannus folds Panniculitis covering for both fungal and bacterial infection -cont fluconazole + zosyn, topical miconazole -surg consult for opening of skin in umbilicus with drainage- will see outpt in clinic -following cxs that remain pending Possible HERBER, baseline creat unknown, prerenal + intrinsic, resolved- nephro following, appreciate recs, outpt recs remain pending Suspected new onset afib with trop elevation in setting of sepsis- now appears NSR, rate controlled without AVN amy, hep gtt bridge to therapeutic INR on coumadin dosed by pharm, will require outpt fu with pcp for outpt stress testing when not acutely ill further diagnoses and plan as noted by resident begin snf dispo planning <Casa Anderson - Last Filed: 09/05/18 18:45> Hospitalist Progress Note - Encounter Date of Encounter: 09/05/18 Time of Encounter: 09:11 - Subjective Interval History: She was seen and examined at bedside this morning. She states that overall she continues to feel better each day. Her abdominal pain is improved. She denies any symptoms of fevers, chills, nausea, vomiting. She has no concerns at this time and there are no overnight events. - Exam Vitals: Temp Pulse Resp BP Pulse Ox 98.9 F 71 16 118/74 92 09/05/18 04:27 09/05/18 04:27 09/05/18 04:27 09/05/18 04:27 09/05/18 04:27 Exam: Gen.: Vitals noted. No acute distress. AAOx3, resting comfortably in bed. Morb idly obese HEENT: PERRL/EOMI, oropharynx clear, Normocephalic, atraumatic, MMM Cardiac: Irregularly irregular, no murmur, +S1/S2, 1+ BLE edema Pulmonary: CTA bilaterally, no wheezes, rales or rhonchi, equal chest expansion, unlabored breathing Abdomen: soft, mildly tender to palpation in the lower regions but improved, BS noted, no guarding, no palpable HSM Skin: warm and dry, umbilicus with evidence of purulent drainage improved, pannus on underside does show significant more dry-appearing erythema and scaling with no obvious drainage. MSK: ROM assessed, no joint swelling noted, gait no assessed while in bed. Non tender calf or clubbing Neuro: A&Ox3, moves all extremities, no focal deficits, sensation intact Psych: Appropriate mood and behavior, AOx3 - Assessment and Plan (1) Sepsis Current Visit: Yes Status: Acute Assessment and Plan: - Evidence of sepsis with tachycardia, tachypnea - Lactic acid within normal limits at 1.5 - Did not meet sepsis on admission. Now resolved. - Suspected source is panniculitis as well as potential UTI - Suspected organism: Most likely skin kieran vs fungal - WBC within normal limits 5.1 - Urinalysis shows positive nitrates, large leukocyte esterase however does have many epithelial cells. Culture Escherichia coli and other gram-negative lv - Blood cultures will be obtained this morning , prelim negative - Wound culture growing corynebacterium striatum and gram negative lv - Urine culture growing gram-negative lv, Escherichia coli - Physical exam does show severe panniculitis with seropurulent drainage which i s improving. - CT of the abdomen/pelvis 09/02 shows midline visceral fat containing hernias without complication, no intra-abdominal abnormality, small bowel shock and renal stones. - Wound care has been consulted - Gen. surgery evaluated yesterday and will see as outpatient. Drainage from Carla likely due to increased pressure and edema - Patient was started on Zosyn and linezolid due to kidney function - Also received a dose of Unasyn and vancomycin - Vancomycin discontinued Due to negative MRSA swab Plan - Continue antibiotics of Zosyn, day #4 of therapy - Wound care - Continue fluconazole IV, day 3 - Consider switching to PO meds tomorrow once sensitivities back (2) Panniculitis Current Visit: Yes Status: Acute Assessment and Plan: Sepsis as above (3) HERBER (acute kidney injury) Current Visit: Yes Status: Resolved Assessment and Plan: Patient presents with a creatinine of 3.0 and GFR of 16. No reports of chronic kidney disease in patient's record however patient does admit to some history but is unsure stage. - Unclear if this is acute or chronic. - To catheter placed by nurse with a reported yellowish puslike drainage. Patient received fluid bolus in the ED. - Kidney function improved with today of 20/1.20, suspect this is likely her baseline - FeNA suggests a intrinsic etiology at 1.5% - Suspect that there is at least some component of prerenal etiology secondary to sepsis - Nephrology consulted, appreciate recommendations Plan - Nephrology will be signing off today given patient's past improvement. - Recommends discontinuing of IV fluids and oral intake encouraged - Suspect that this may be related to acute on chronic kidney injury with the etiology of sepsis and prerenal - Continue treatment of sepsis and UTI (4) Diabetes mellitus Current Visit: Yes Status: Acute Assessment and Plan: Blood glucose checks. Sliding scale insulin. Diabetic diet. Well-controlled since his admission in the 100s (5) Atrial fibrillation Current Visit: Yes Status: Acute Assessment and Plan: - Patient noted to be now rate controlled on physical examination. - EKG was obtained which showed atrial fibrillation with rapid ventricular response. - Heart rate now better controlled and 70s and 80s -Telemetry - CHADVASC 5 (age, HTN, female, CHF, DM) -No home av dick blockers - Patient states that this is new for her plan -We will start patient on heparin drip for stroke prophylaxis. - Discussed anticoagulation, patient agreeable to start Coumadin, will start. INR 1.1 this morning - We will obtain old records from PCP regarding how long she has been in atrial fibrillation. - May require ischemic workup, possibly as outpatient - When necessary metoprolol IV push (6) CKD (chronic kidney disease) Current Visit: Yes Status: Suspected Assessment and Plan: suspet CKD as above. Will obtain records (7) UTI (urinary tract infection) Current Visit: Yes Status: Acute Assessment and Plan: - as above - Abx and cultures pending (8) Elevated troponin Current Visit: Yes Status: Acute Assessment and Plan: - Noted to be elevated today at 0.45, this was trended to 0.25 - Suspect this is likely secondary to demand ischemia in the setting of sepsis as above - Also noted patient was in nature fibrillation with RVR which has since resolved - Patient was started on heparin drip due to A. fib - No previous history of CAD - Echocardiogram shows preserved ejection fraction with mild diastolic dysfunction Plan - We will continue monitor at this time - Will not trend troponins as it is our downtrending - EKG was obtained this morning and reviewed personally (9) Anemia Current Visit: Yes Status: Chronic Assessment and Plan: - Hemoglobin of 8.5 this morning which is down trending from 10.9 admission however stable from yesterday - Unclear baseline - It is noted that patient did receive fluids for sepsis and I suspect that this is likely a dilutional drop - No signs or symptoms of bleeding - Patient denies any symptoms - We will continue to monitor and transfuse if less than 7 DVT Prophylaxis: Heparin drip as above - Time Spent with Patient Total time spent is greater than 50% in coordination of care (as documented) at patient's floor/unit and/or counseling patient: Internal Medicine: Result - Labs CBC & Chem 7: 09/05/18 07:29 09/05/18 07:29 Labs: BMP 09/04/18 04:28 Sodium 143 Potassium 3.4 L Chloride 111 H Carbon Dioxide 23 BUN 32 H Creatinine 1.36 H Glucose 106 H Calcium 6.5 L Urine 09/02/18 Range/Units 00:00 Urine Color Yellow (Yellow) Urine Clarity Turbid A (Clear) Urine pH 6.0 (5.0-8.0) pH Units Ur Specific [place] 1.016 (1.010-1.025) Urine Protein 100 H (Neg-Trace) mg/dL Urine Glucose (UA) Normal (Normal) mg/dL - ABG Interpretation ABG results: ABG ABG pH 7.42 pH Units (7.32-7.45) 09/02/18 08:29 ABG pCO2 24 mmHg (35-45) L 09/02/18 08:29 ABG pO2 67 mmHg (85-104) L 09/02/18 08:29 ABG O2 Saturation 94 % (95-98) L 09/02/18 08:29 PT/INR, D-dimer PT 13.1 Seconds (9.4-12.1) H 09/04/18 04:28 <Cecelia Angeles - Last Filed: 09/05/18 12:49> (3) Diabetes mellitus Qualifiers: Diabetes mellitus type: type 2 Diabetes mellitus nursing home insulin use: unspecified nursing home insulin use status Diabetes mellitus complication status: with unspecified complications Qualified Code(s): E11.8 - Type 2 diabetes mellitus with unspecified complications (4) Atrial fibrillation Qualifiers: Atrial fibrillation type: paroxysmal Qualified Code(s): I48.0 - Paroxysmal atrial fibrillation (5) Sepsis Qualifiers: Sepsis type: sepsis due to unspecified organism Qualified Code(s): A41.9 - Sepsis, unspecified organism (6) CKD (chronic kidney disease) Qualifiers: Chronic kidney disease stage: stage 3 (moderate) Qualified Code(s): N18.3 - Chronic kidney disease, stage 3 (moderate) (7) UTI (urinary tract infection) Qualifiers: Urinary tract infection type: acute cystitis Hematuria presence: with hematuria Qualified Code(s): N30.01 - Acute cystitis with hematuria (9) Anemia Qualifiers: Anemia type: unspecified type Qualified Code(s): D64.9 - Anemia, unspecified <Casa Anderson - Last Filed: 09/05/18 18:45> (1) Sepsis Qualifiers: Sepsis type: sepsis due to unspecified organism Qualified Code(s): A41.9 - Sepsis, unspecified organism (4) Diabetes mellitus Qualifiers: Diabetes mellitus type: type 2 Diabetes mellitus intermediate accountant insulin use: unspecified nursing home insulin use status Diabetes mellitus complication status: with unspecified complications Qualified Code(s): E11.8 - Type 2 diabetes mellitus with unspecified complications (5) Atrial fibrillation Qualifiers: Atrial fibrillation type: paroxysmal Qualified Code(s): I48.0 - Paroxysmal atrial fibrillation (6) CKD (chronic kidney disease) Qualifiers: Chronic kidney disease stage: stage 3 (moderate) Qualified Code(s): N18.3 - Chronic kidney disease, stage 3 (moderate) (7) UTI (urinary tract infection) Qualifiers: Urinary tract infection type: acute cystitis Hematuria presence: with hematuria Qualified Code(s): N30.01 - Acute cystitis with hematuria (9) Anemia Qualifiers: Anemia type: unspecified type Qualified Code(s): D64.9 - Anemia, unspecified
[2018-09-05] MEDS: Aspirin Enteric Coated 81 MG Tablet PO SCH (07:51)
[2018-09-05 08:00] LABS: Basophils % 0.2 %; Eosinophils # 0.1 K/mcL (0.0-0.6); Eosinophils % 1.8 %; Hematocrit 27.7 % (35.3-44.9); Hemoglobin 8.5 g/dL (11.5-15.4); Immature Granulocytes % 2.9 % (0-4); Lymphocytes # 1.9 K/mcL (0.6-4.6); Lymphocytes % 36.2 %; Mean Corpuscular HGB Conc 30.7 g/dL (31.6-35.5); Mean Corpuscular Hemoglobin 27.3 pg (28.0-33.3); Mean Corpuscular Volume 89.1 fL (83.0-100.0); Mean Platelet Volume 9.6 fL (9.4-12.4); Monocytes # 0.5 K/mcL (0.0-1.3); Monocytes % 9.7 %; Neutrophils # 2.5 K/mcL (1.6-8.9); Nucleated Red Blood Cells 0.4 /100 WBC (0); Platelet Count 222 K/mcL (140-400); Red Blood Count 3.11 M/mcL (3.82-4.97); Red Cell Distribution Width 17.9 % (11.5-14.5); Segmented Neutrophils % 49.2 %
[2018-09-05] MEDS: Fluconazole 200 MG/100 ML 200 MG/100 ML BAG IVPB SCH (08:00)
[2018-09-05] MEDS: Miconazole 2% ointment 114 GM TUBE TP SCH ×2 (08:00→20:33)
[2018-09-05] MEDS: Insulin LISPRO 300 UNITS/3 ML VIAL SQ SCH ×3 (08:10→16:38)
[2018-09-05 08:23] LABS: INR 1.1; Prothrombin Time 12.8 Seconds (9.4-12.1)
[2018-09-05 08:47] LABS: Calcium 6.7 mg/dL (8.6-10.3); Potassium 3.7 mEq/L (3.5-5.1)
[2018-09-05] MEDS ORDERED: *HR* Dextrose 50 % in Water (Syg) 50 ML SYRINGE IVP PRN (09:51)
[2018-09-05] MEDS ORDERED: *HR* Heparin 5,000 UNIT/ML VIAL IVP PRN ×2 (09:51)
[2018-09-05] MEDS ORDERED: *HR* Metoprolol 5 MG/5 ML VIAL IVP PRN (09:51)
[2018-09-05] MEDS ORDERED: D5% in Water 1,000 ML IVC PRN (09:51)
[2018-09-05] MEDS ORDERED: OXYCODONE Oral CONC 10 MG/0.5 ML ORAL.SYG SL PRN (09:51)
[2018-09-05] MEDS ORDERED: Sodium Bicarbonate 75 MEQ in 0.45 % Sodium Chloride 1,000 ML IVC SCH (09:51)
[2018-09-05] MEDS ORDERED: Dextrose Gel 15 GM/37.5 ML TUBE PO PRN ×2 (09:51)
[2018-09-05] MEDS ORDERED: Warfarin perPT PO PRN (09:51)
[2018-09-05] MEDS ORDERED: Naloxone 0.4 MG/ML INJ IVP PRN (09:51)
--- NOTE | 2018-09-05 17:06 | Nephrology Progress Note ---
Date of Encounter: 09/05/18 Time of Encounter: 14:30 - Assessment and Plan (1) HERBER (acute kidney injury) Current Visit: Yes Status: Resolved Patient's creatinine normalized to 1.20 from 1.36. Good UOP of 0.6 cc/kg/hr. Demonstrating good PO fluid intake. - Renal dose antibiotics and medications. - Can transition from IVF to complete PO fluids. - Avoid nephrotoxins. Nephrology will sign off on this patient. (2) Hypokalemia Current Visit: Yes Status: Resolved (3) Anemia Current Visit: Yes Status: Chronic Stable. Qualifiers: Anemia type: unspecified type Qualified Code(s): D64.9 - Anemia, unspecified (4) Atrial fibrillation Current Visit: Yes Status: Acute Qualifiers: Atrial fibrillation type: paroxysmal Qualified Code(s): I48.0 - Paroxysmal atrial fibrillation (5) Panniculitis Current Visit: Yes Status: Acute Subjective Interval history: When seen this morning, the patient denied any fever, cough, or SOB. She denied any chest pain. Denied any abdominal pain, nausea, or vomiting. Denied any swelling in her LE. Patient was A&Ox3: improvement from yesterday. Objective - Vital Signs Vital signs: Vital Signs Temp Pulse Resp BP Pulse Ox 09/05/18 16:26 98.7 F 86 18 117/59 96 09/05/18 16:19 67 09/05/18 12:54 66 09/05/18 11:32 98.9 F 68 18 121/65 95 09/05/18 08:22 95 09/05/18 08:10 66 18 95 09/05/18 08:06 98.7 F 69 16 138/65 94 09/05/18 08:05 66 09/05/18 04:27 98.9 F 71 16 118/74 92 09/05/18 00:03 99.1 F 70 16 109/56 93 09/04/18 19:12 98.0 F 76 18 124/69 97 Intake and Output 09/05/18 09/05/18 09/05/18 07:59 15:59 23:59 Intake Total 1156.1 / 3057.1 1901 / 3057.1 Output Total 550 / 900 350 / 900 Balance 1156.1 / 2157.1 1351 / 2157.1 -350 / 2157.1 Intake: IV Fluids 1156.1 / 2577.1 1421 / 2577.1 Heparin 25,000 UNIT/250 ML D5W 56.1 / 202.1 146 / 202.1 25,000 unit In 250 ml @ 14 UNIT /KG/HR 14.974 mls/hr IVC . [id number] JESSICA Rx#:[id number] Sodium Bicarbonate 75 MEQ In 0. 1000 / 2075 1075 / 2075 45% Sodium Chloride 1000 Ml 1000 Ml 1,000 ML @ 125 mls/hr IVC .[id number] JESSICA Rx#:[id number] Diflucan Premix 200 MG/100 ML 100 / 100 200 mg In 100 ml @ 100 mls/hr IVPB DAILY JESSICA Rx#:[id number] Zosyn 3.375 GM In 0.9 % Sodium 100 / 200 100 / 200 Chloride (Mini-Bag +) 100 ML @ 25 mls/hr IVPB Q8HR JESSICA Rx#: [id number] Oral 480 / 480 Output: Catheter 550 / 900 350 / 900 Other: Meal Lunch Percent of Meal Consumed 100% Stool Size Moderate Stool Consistency soft Stool Color Brown Blood Glucose* 109 112 - General Appearance General appearance: Present: appears started age, obese EENT: Present: mucous membranes moist Neck: Present: no JVD Respiratory: Present: clear Cardiology: Present: holosystolic murmur, no rub, no gallops, no edema, regular rate, regular rhythm, normal S1, normal S2 Gastrointestinal: Present: normoactive bowel sounds, no tenderness, no guarding, no organomegaly Integumentary: Present: rash, warm and dry, hyperkeratosis (Feet b/l. ) Neurologic: Present: no focal deficit, no asterixis, alert and oriented x3 Additional Comments: Erythema in lower abdominal quadrants improving. Minimal pus. Umbilicus rash improving. Minor mucopurulent drainage. Musculoskeletal: Present: no deformities, no cyanosis, no clubbing Psychiatric: Present: mood/affect appropriate, cooperative - Lab 09/05/18 07:29 09/05/18 07:29 Most recent lab results 09/05/18 07:29 Calcium 6.7 L Consult Discharge Plan - Plan Referrals: Erickson Lopez ENGINEERING OPERATIONS LEADER [Advanced Practice Nurse] - 09/17/18 2:30 pm
[2018-09-05] MEDS ORDERED: *HR* Warfarin 5 MG TABLET PO ONE ×2 (18:00)
[2018-09-06] MEDS: Piperacillin/Tazobactam 3.375 GM in 0.9 % Sodium Chloride Mini Bag 100 ML IVPB SCH ×4 (00:37→23:37)
[2018-09-06] MEDS: Heparin 25,000 UNIT/250 ML D5W 25,000 UNIT/250 ML IV.SOLN IVC SCH ×3 (05:38→18:37)
[2018-09-06 07:03] LABS: Basophils % 0.3 %; Eosinophils # 0.1 K/mcL (0.0-0.6); Eosinophils % 1.4 %; Hematocrit 27.8 % (35.3-44.9); Hemoglobin 8.5 g/dL (11.5-15.4); Immature Granulocytes % 3.6 % (0-4); Lymphocytes # 1.9 K/mcL (0.6-4.6); Lymphocytes % 29.7 %; Mean Corpuscular HGB Conc 30.6 g/dL (31.6-35.5); Mean Corpuscular Hemoglobin 26.9 pg (28.0-33.3); Mean Platelet Volume 9.3 fL (9.4-12.4); Monocytes # 0.6 K/mcL (0.0-1.3); Monocytes % 8.6 %; Neutrophils # 3.6 K/mcL (1.6-8.9); Nucleated Red Blood Cells 0.3 /100 WBC (0); Platelet Count 224 K/mcL (140-400); Red Blood Count 3.16 M/mcL (3.82-4.97); Red Cell Distribution Width 17.7 % (11.5-14.5); Segmented Neutrophils % 56.4 %
[2018-09-06 07:07] LABS: INR 1.4; Prothrombin Time 15.4 Seconds (9.4-12.1)
[2018-09-06] MEDS: Miconazole 2% ointment 114 GM TUBE TP SCH ×2 (07:20→20:24)
[2018-09-06 07:21] LABS: Calcium 6.9 mg/dL (8.6-10.3); Potassium 3.6 mEq/L (3.5-5.1)
--- NOTE | 2018-09-06 08:31 | Internal Med Progress Note ---
<Cecelia Angeles - Last Filed: 09/06/18 13:13> Hospitalist Progress Note - Encounter Date of Encounter: 09/06/18 - Exam Vitals: Temp Pulse Resp BP Pulse Ox 98.1 F 67 18 110/70 97 09/06/18 11:15 09/06/18 11:15 09/06/18 11:15 09/06/18 11:15 09/06/18 11:15 - Assessment and Plan (1) Panniculitis Current Visit: Yes Status: Acute (2) HERBER (acute kidney injury) Current Visit: Yes Status: Resolved (3) Diabetes mellitus Current Visit: Yes Status: Acute (4) Atrial fibrillation Current Visit: Yes Status: Acute (5) Sepsis Current Visit: Yes Status: Acute (6) CKD (chronic kidney disease) Current Visit: Yes Status: Suspected (7) UTI (urinary tract infection) Current Visit: Yes Status: Acute (8) Elevated troponin Current Visit: Yes Status: Acute (9) Anemia Current Visit: Yes Status: Chronic - Time Spent with Patient Total time spent is greater than 50% in coordination of care (as documented) at patient's floor/unit and/or counseling patient: Internal Medicine: Result - Labs CBC & Chem 7: 09/06/18 06:08 09/06/18 06:08 Labs: Short CBC 09/06/18 Range/Units 06:08 WBC 6.4 (4.3-11.1) K/mcL Hgb 8.5 L (11.5-15.4) g/dL Hct 27.8 L (35.3-44.9) % Plt Count 224 (140-400) K/mcL Neutrophils # 3.6 (1.6-8.9) K/mcL BMP 09/06/18 06:08 Sodium 141 Potassium 3.6 Chloride 109 H Carbon Dioxide 23 BUN 16 Creatinine 1.32 H Glucose 100 Calcium 6.9 L - ABG Interpretation ABG results: ABG ABG pH 7.42 pH Units (7.32-7.45) 09/02/18 08:29 ABG pCO2 24 mmHg (35-45) L 09/02/18 08:29 ABG pO2 67 mmHg (85-104) L 09/02/18 08:29 ABG O2 Saturation 94 % (95-98) L 09/02/18 08:29 PT/INR, D-dimer PT 15.4 Seconds (9.4-12.1) H 09/06/18 06:08 - Impressions Impressions Abdomen/Pelvis CT 09/02/18 09:20 IMPRESSION: Midline ventral fat containing hernias without acute hernia complication. No specific evidence of cellulitis. No acute intra-abdominal/intrapelvic abnormality. Small nonobstructing left renal stones without evidence of hydronephrosis. No acute bowel abnormality. D/ / 09/02/2018 11:37:51 Gabriel Block MD / Carrie Hallman Interpreting Provider: Gabriel Block MD Consult Discharge Plan - Plan Referrals: Erickson Lopez, FOAM CUTTING SUPERVISOR [Advanced Practice Nurse] - 09/17/18 2:30 pm (Patient is going to [facility]) - Attending Attestation I examined this patient and my medical decision-making was reviewed with the Resident Physician Dr Anderson. I agree with the documented findings, disposition and treatment plan as described except to the extent set forth below. Ms Virgen is admitted with sepsis 2/2 UTI and severe candidiasis/panniculitis She developed reportedly new afib this admission awake, no itching or pain of skin, denies fevers, chills, n/v. She is unsure if skin findings improving but feeling better gen- alert, awake,appears stated age, obese cv- reg rate and reg rhythm,no le pitting edema lungs- ctabl, ant/lat lynch, normal resp effort on room air abd- soft, non tender, non distended skin- abd folds with gauze in place, improving erythema neuro- AAOx3 Sepsis 2/2 UTI and severe candidiasis/paniculitis, resolved Candidiasis pannus folds Panniculitis covering for both fungal and bacterial infection -change to PO fluconazole + zosyn, topical miconazole -surg consult for opening of skin in umbilicus with drainage- will see outpt in clinic -following cxs that remain pending and then will be ready for DC Possible HERBER, baseline creat unknown, prerenal + intrinsic, resolved- nephro followed, encourage oral fluids Suspected new onset afib with trop elevation in setting of sepsis- now rate controlled afib, rate controlled without AVN amy, hep gtt bridge to therapeutic INR on coumadin dosed by pharm, INR remains lower than goal, will require outpt fu with pcp for outpt ischemic work up further diagnoses and plan as noted by resident accepted to snf when medically able to dc <Casa Anderson - Last Filed: 09/06/18 13:45> Hospitalist Progress Note - Encounter Date of Encounter: 09/06/18 Time of Encounter: 09:25 - Subjective Interval History: Patient seen and examined at bedside this morning. She continues to improve each day with both her pain and overall feeling. She continues to deny any symptoms of fevers, chills, nausea, vomiting, chest, shortness of breath. She has not noticed any drainage. - Exam Vitals: Temp Pulse Resp BP Pulse Ox 98.5 F 73 18 127/68 94 09/06/18 07:33 09/06/18 07:33 09/06/18 07:33 09/06/18 07:33 09/06/18 07:33 Exam: Gen.: Vitals noted. No acute distress. AAOx3, resting comfortably in bed. Morbidly obese HEENT: PERRL/EOMI, oropharynx clear, Normocephalic, atraumatic, MMM Cardiac: Irregularly irregular, no murmur, +S1/S2, 1+ BLE edema Pulmonary: CTA bilaterally, no wheezes, rales or rhonchi, equal chest expansion, unlabored breathing Abdomen: soft, mildly tender to palpation in the lower regions but improved, BS noted, no guarding, no palpable HSM Skin: warm and dry, umbilicus with evidence of purulent drainage improved, pannus on underside does show significant more dry-appearing erythema and scaling with no obvious drainage. MSK: ROM assessed, no joint swelling noted, gait no assessed while in bed. Non tender calf or clubbing Neuro: A&Ox3, moves all extremities, no focal deficits, sensation intact Psych: Appropriate mood and behavior, AOx3 - Assessment and Plan (1) Sepsis Current Visit: Yes Status: Acute Assessment and Plan: - Evidence of sepsis with tachycardia, tachypnea - Lactic acid within normal limits at 1.5 - Did not meet sepsis on admission. Now resolved. - Suspected source is panniculitis as well as potential UTI - Suspected organism: Most likely skin kieran vs fungal - WBC within normal limits 6.4 - Urinalysis shows positive nitrates, large leukocyte esterase however does have many epithelial cells. Culture Escherichia coli and other gram-negative lv - Blood cultures will be obtained this morning , prelim negative - Wound culture growing corynebacterium striatum and gram negative lv - Urine culture growing gram-negative lv, Escherichia coli - Physical exam does show severe panniculitis with seropurulent drainage which is improving. - CT of the abdomen/pelvis 09/02 shows midline visceral fat containing hernias without complication, no intra-abdominal abnormality, small bowel shock and renal stones. - Wound care has been consulted - Gen. surgery evaluated yesterday and will see as outpatient. Drainage from navel likely due to increased pressure and edema - Patient was started on Zosyn and linezolid due to kidney function - Also received a dose of Unasyn and vancomycin - Vancomycin discontinued Due to negative MRSA swab Plan - Continue antibiotics of Zosyn, day #5 of therapy - Wound care - Continue fluconazole PO, day 4 - Consider switching to PO meds once sensitivities back and we know what organisms we can treat - Duration of treatment likely 14 days (2) Panniculitis Current Visit: Yes Status: Acute Assessment and Plan: Sepsis as above (3) HERBER (acute kidney injury) Current Visit: Yes Status: Resolved Assessment and Plan: Patient presents with a creatinine of 3.0 and GFR of 16. No reports of chronic kidney disease in patient's record however patient does admit to some history but is unsure stage. - Unclear if this is acute or chronic. - To catheter placed by nurse with a reported yellowish puslike drainage. Patient received fluid bolus in the ED. - Kidney function mildly worsened today with 20/1.32, suspect this is likely her baseline - FeNA suggests a intrinsic etiology at 1.5% - Suspect that there is at least some component of prerenal etiology secondary to sepsis - Nephrology consulted, appreciate recommendations - Good urine output Plan - Nephrology will be signing off today given patient's past improvement. - Recommends discontinuing of IV fluids and oral intake encouraged - Suspect that this may be related to acute on chronic kidney injury with the etiology of sepsis and prerenal - Continue treatment of sepsis and UTI (4) Diabetes mellitus Current Visit: Yes Status: Acute Assessment and Plan: Blood glucose checks. Sliding scale insulin. Diabetic diet. Well-controlled since his admission in the 100s (5) Atrial fibrillation Current Visit: Yes Status: Acute Assessment and Plan: - Patient noted to be now rate controlled on physical examination. - EKG was obtained which showed atrial fibrillation with rapid ventricular response. - Heart rate now better controlled and 70s and 80s -Telemetry - CHADVASC 5 (age, HTN, female, CHF, DM) -No home av dick blockers - Patient states that this is new for her plan -We will start patient on heparin drip for stroke prophylaxis. - Discussed anticoagulation, patient agreeable to start Coumadin, will start. INR 1.4 this morning - We will obtain old records from PCP regarding how long she has been in atrial fibrillation. - May require ischemic workup, possibly as outpatient - When necessary metoprolol IV push (6) CKD (chronic kidney disease) Current Visit: Yes Status: Suspected Assessment and Plan: suspet CKD as above. Will obtain records (7) UTI (urinary tract infection) Current Visit: Yes Status: Acute Assessment and Plan: - as above - Abx and cultures pending (8) Elevated troponin Current Visit: Yes Status: Acute Assessment and Plan: - Noted to be elevated today at 0.45, this was trended to 0.25 - Suspect this is likely secondary to demand ischemia in the setting of sepsis as above - Also noted patient was in nature fibrillation with RVR which has since resolved - Patient was started on heparin drip due to A. fib - No previous history of CAD - Echocardiogram shows preserved ejection fraction with mild diastolic dysfunction Plan - We will continue monitor at this time - Will not trend troponins as it is our downtrending - EKG was obtained this morning and reviewed personally (9) Anemia Current Visit: Yes Status: Chronic Assessment and Plan: - Hemoglobin of 8.5 this morning which is down trending from 10.9 admission however stable from yesterday - Unclear baseline - It is noted that patient did receive fluids for sepsis and I suspect that this is likely a dilutional drop - No signs or symptoms of bleeding - Patient denies any symptoms - We will continue to monitor and transfuse if less than 7 DVT Prophylaxis: Heparin drip as above - Time Spent with Patient Total time spent is greater than 50% in coordination of care (as documented) at patient's floor/unit and/or counseling patient: Internal Medicine: Result - Labs CBC & Chem 7: 09/06/18 06:08 09/06/18 06:08 Labs: Short CBC 09/06/18 Range/Units 06:08 WBC 6.4 (4.3-11.1) K/mcL Hgb 8.5 L (11.5-15.4) g/dL Hct 27.8 L (35.3-44.9) % Plt Count 224 (140-400) K/mcL Neutrophils # 3.6 (1.6-8.9) K/mcL BMP 09/05/18 09/06/18 07:29 06:08 Sodium 143 141 Potassium 3.7 3.6 Chloride 108 H 109 H Carbon Dioxide 25 23 BUN 20 16 Creatinine 1.20 1.32 H Glucose 89 100 Calcium 6.7 L 6.9 L - ABG Interpretation ABG results: ABG ABG pH 7.42 pH Units (7.32-7.45) 09/02/18 08:29 ABG pCO2 24 mmHg (35-45) L 09/02/18 08:29 ABG pO2 67 mmHg (85-104) L 09/02/18 08:29 ABG O2 Saturation 94 % (95-98) L 09/02/18 08:29 PT/INR, D-dimer PT 15.4 Seconds (9.4-12.1) H 09/06/18 06:08 - Impressions Impressions Abdomen/Pelvis CT 09/02/18 09:20 IMPRESSION: Midline ventral fat containing hernias without acute hernia complication. No specific evidence of cellulitis. No acute intra-abdominal/intrapelvic abnormality. Small nonobstructing left renal stones without evidence of hydronephrosis. No acute bowel abnormality. D/ / 09/02/2018 11:37:51 Gabriel Block MD / Carrie Hallman Interpreting Provider: Gabriel Block MD ____ <Cecelia Angeles - Last Filed: 09/06/18 13:13> (3) Diabetes mellitus Qualifiers: Diabetes mellitus type: type 2 Diabetes mellitus nursing home insulin use: unspecified nursing home insulin use status Diabetes mellitus complication status: with unspecified complications Qualified Code(s): E11.8 - Type 2 diabetes mellitus with unspecified complications (4) Atrial fibrillation Qualifiers: Atrial fibrillation type: paroxysmal Qualified Code(s): I48.0 - Paroxysmal atrial fibrillation (5) Sepsis Qualifiers: Sepsis type: sepsis due to unspecified organism Qualified Code(s): A41.9 - Sepsis, unspecified organism (6) CKD (chronic kidney disease) Qualifiers: Chronic kidney disease stage: stage 3 (moderate) Qualified Code(s): N18.3 - Chronic kidney disease, stage 3 (moderate) (7) UTI (urinary tract infection) Qualifiers: Urinary tract infection type: acute cystitis Hematuria presence: with hematuria Qualified Code(s): N30.01 - Acute cystitis with hematuria (9) Anemia Qualifiers: Anemia type: unspecified type Qualified Code(s): D64.9 - Anemia, unspecified <Casa Anderson - Last Filed: 09/06/18 13:45> (1) Sepsis Qualifiers: Sepsis type: sepsis due to unspecified organism Qualified Code(s): A41.9 - Sepsis, unspecified organism (4) Diabetes mellitus Qualifiers: Diabetes mellitus type: type 2 Diabetes mellitus intermodal owner operator truck driver insulin use: unsp ecified nursing home insulin use status Diabetes mellitus complication status: with unspecified complications Qualified Code(s): E11.8 - Type 2 diabetes mellitus with unspecified complications (5) Atrial fibrillation Qualifiers: Atrial fibrillation type: paroxysmal Qualified Code(s): I48.0 - Paroxysmal atrial fibrillation (6) CKD (chronic kidney disease) Qualifiers: Chronic kidney disease stage: stage 3 (moderate) Qualified Code(s): N18.3 - Chronic kidney disease, stage 3 (moderate) (7) UTI (urinary tract infection) Qualifiers: Urinary tract infection type: acute cystitis Hematuria presence: with hematuria Qualified Code(s): N30.01 - Acute cystitis with hematuria (9) Anemia Qualifiers: Anemia type: unspecified type Qualified Code(s): D64.9 - Anemia, unspecified
[2018-09-06] MEDS ORDERED: Fluconazole 200 MG/100 ML 200 MG/100 ML BAG IVPB SCH (09:00)
[2018-09-06] MEDS: Insulin LISPRO 300 UNITS/3 ML VIAL SQ SCH ×3 (09:08→17:08)
[2018-09-06] MEDS: Fluconazole 100 MG TABLET PO SCH (09:19)
[2018-09-06] MEDS: Aspirin Enteric Coated 81 MG Tablet PO SCH (09:19)
[2018-09-06] MEDS ORDERED: *HR* Warfarin 5 MG TABLET PO ONE (18:00)
[2018-09-07] MEDS ORDERED: NON-FORMULARY MEDICATION 1 EACH EACH (Alendronate Sodium 70 MG) PO SCH (00:10)
[2018-09-07] MEDS: Heparin 25,000 UNIT/250 ML D5W 25,000 UNIT/250 ML IV.SOLN IVC SCH (03:51)
[2018-09-07 05:26] LABS: INR 2.2; Prothrombin Time 24.6 Seconds (9.4-12.1)
[2018-09-07 05:34] LABS: Calcium 6.9 mg/dL (8.6-10.3); Potassium 3.5 mEq/L (3.5-5.1)
--- NOTE | 2018-09-07 07:31 | Neurology Progress Note ---
Date of Encounter: 09/07/18 Time of Encounter: 07:30 Assessment and Plan (1) Panniculitis Current Visit: Yes Status: Acute (2) HERBER (acute kidney injury) Current Visit: Yes Status: Resolved (3) Diabetes mellitus Current Visit: Yes Status: Acute Qualifiers: Diabetes mellitus type: type 2 Diabetes mellitus fci insulin use: unspecified fci insulin use status Diabetes mellitus complication status: with unspecified complications Qualified Code(s): E11.8 - Type 2 diabetes mellitus with unspecified complications (4) Atrial fibrillation Current Visit: Yes Status: Acute Qualifiers: Atrial fibrillation type: paroxysmal Qualified Code(s): I48.0 - Paroxysmal atrial fibrillation (5) Sepsis Current Visit: Yes Status: Acute Qualifiers: Sepsis type: sepsis due to unspecified organism Qualified Code(s): A41.9 - Sepsis, unspecified organism (6) CKD (chronic kidney disease) Current Visit: Yes Status: Suspected Qualifiers: Chronic kidney disease stage: stage 3 (moderate) Qualified Code(s): N18.3 - Chronic kidney disease, stage 3 (moderate) (7) UTI (urinary tract infection) Current Visit: Yes Status: Acute Qualifiers: Urinary tract infection type: acute cystitis Hematuria presence: with hematuria Qualified Code(s): N30.01 - Acute cystitis with hematuria (8) Elevated troponin Current Visit: Yes Status: Acute (9) Anemia Current Visit: Yes Status: Chronic Qualifiers: Anemia type: unspecified type Qualified Code(s): D64.9 - Anemia, unspecified Subjective Principal diagnosis: herber Objective - Constitutional Vitals: Temp Pulse Resp BP Pulse Ox 97.7 F 66 16 138/82 96 09/07/18 06:51 09/07/18 06:51 09/07/18 06:51 09/07/18 06:51 09/07/18 06:51 Results - Laboratory Findings CBC and BMP: 09/06/18 06:08 09/07/18 04:01 Abnormal lab findings: Abnormal lab results RBC 3.16 M/mcL (3.82-4.97) L 09/06/18 06:08 Hgb 8.5 g/dL (11.5-15.4) L 09/06/18 06:08 Hct 27.8 % (35.3-44.9) L 09/06/18 06:08 MCH 26.9 pg (28.0-33.3) L 09/06/18 06:08 MCHC 30.6 g/dL (31.6-35.5) L 09/06/18 06:08 RDW 17.7 % (11.5-14.5) H 09/06/18 06:08 MPV 9.3 fL (9.4-12.4) L 09/06/18 06:08 Nucleated RBCs/100 WBC 0.3 /100 WBC (0) H 09/06/18 06:08 PT 24.6 Seconds (9.4-12.1) H D 09/07/18 04:01 Heparin Anti-Xa, Unfract 0.01 IU/mL (0.30-0.70) L 09/02/18 06:01 ABG pCO2 24 mmHg (35-45) L 09/02/18 08:29 ABG pO2 67 mmHg (85-104) L 09/02/18 08:29 ABG HCO3 15 mEq/L (21-27) L 09/02/18 08:29 ABG Total CO2 16 mEq/L (20-26) L 09/02/18 08:29 ABG O2 Saturation 94 % (95-98) L 09/02/18 08:29 ABG Base Excess -8 mEq/L (-2 to 3) L 09/02/18 08:29 Sodium 133 mEq/L (136-145) L 09/01/18 19:12 Potassium 3.4 mEq/L (3.5-5.1) L 09/04/18 04:28 Chloride 111 mEq/L (98-107) H 09/07/18 04:01 Carbon Dioxide 22 mEq/L (23-29) L 09/03/18 06:52 BUN 32 mg/dL (8-23) H 09/04/18 04:28 1.32 mg/dL (0.60-1.20) H 09/06/18 06:08 Est GFR ( Amer) 58 (> 60) L 09/07/18 04:01 Est GFR (Non-Af Amer) 48 (> 60) L 09/07/18 04:01 29 (6-26) H 09/03/18 06:52 Glucose 106 mg/dL (70-105) H 09/04/18 04:28 POC Glucose 130 mg/dL (70-99) H 09/06/18 18:56 303 (280-300) H 09/04/18 04:28 Calcium 6.9 mg/dL (8.6-10.3) L 09/07/18 04:01 144 mg/dL (203-362) L 09/04/18 10:51 0.25 ng/mL (< 0.04) H* 09/02/18 13:41 5.1 g/dL (6.4-8.9) L 09/02/18 06:01 2.5 g/dL (3.5-5.7) L 09/02/18 06:01 1.0 (1.1-2.2) L 09/02/18 06:01 Turbid (Clear) A 09/02/18 00:00 100 mg/dL (Neg-Trace) H 09/02/18 00:00 Large (Negative) H 09/02/18 00:00 Positive (Negative) A 09/02/18 00:00 Ur Leukocyte Esterase Large (Negative) H 09/02/18 00:00 5-15 per hpf (0-3) H 09/02/18 00:00 TNTC per hpf (0-3) H 09/02/18 00:00 Ur Squamous Epith Cells Many per lpf (None-Few) H 09/02/18 00:00 Many per hpf (None-Few) H 09/02/18 00:00 Ur Culture Indicated? YES (NO) A 09/02/18 00:00 Protein/Creatinin Ratio 0.44 mg/mg (0.00-0.20) H 09/03/18 01:55 27 mg/dL (1-14) H 09/03/18 01:55 Consult Discharge Plan - Plan Referrals: Erickson Lopez REPAIR DEPARTMENT MANAGER [Advanced Practice Nurse] - 09/17/18 2:30 pm (Patient is going to [facility])
[2018-09-07] MEDS: Insulin LISPRO 300 UNITS/3 ML VIAL SQ SCH ×3 (08:47→16:22)
[2018-09-07] MEDS: Piperacillin/Tazobactam 3.375 GM in 0.9 % Sodium Chloride Mini Bag 100 ML IVPB SCH ×2 (09:25→16:21)
[2018-09-07] MEDS: Fluconazole 100 MG TABLET PO SCH (09:26)
[2018-09-07] MEDS: Aspirin Enteric Coated 81 MG Tablet PO SCH (09:26)
[2018-09-07] MEDS: Miconazole 2% ointment 114 GM TUBE TP SCH ×2 (09:27→20:34)
--- NOTE | 2018-09-07 10:34 | Internal Med Progress Note ---
<Casa Anderson - Last Filed: 09/07/18 11:25> Hospitalist Progress Note - Encounter Date of Encounter: 09/07/18 Time of Encounter: 11:26 - Subjective Interval History: Patient was seen and examined at bedside this morning. She reports that she is about symptoms initially. Continues to have no pain, nausea, vomiting, fevers, chills. No events overnight. She thinks the drainage might be less. - Exam Vitals: Temp Pulse Resp BP Pulse Ox 97.7 F 66 16 138/82 96 09/07/18 06:51 09/07/18 06:51 09/07/18 06:51 09/07/18 06:51 09/07/18 06:51 Exam: Gen.: Vitals noted. No acute distress. AAOx3, resting comfortably in bed. Morbidly obese HEENT: PERRL/EOMI, oropharynx clear, Normocephalic, atraumatic, MMM Cardiac: Irregularly irregular, no murmur, +S1/S2, 1+ BLE edema Pulmonary: CTA bilaterally, no wheezes, rales or rhonchi, equal chest expansion, unlabored breathing Abdomen: soft, mildly tender to palpation in the lower regions but improved, BS noted, no guarding, no palpable HSM Skin: warm and dry, umbilicus with evidence of purulent drainage improved, pannus on underside does show significant more dry-appearing erythema and scaling with no obvious drainage. MSK: ROM assessed, no joint swelling noted, gait no assessed while in bed. Non tender calf or clubbing Neuro: A&Ox3, moves all extremities, no focal deficits, sensation intact Psych: Appropriate mood and behavior, AOx3 - Assessment and Plan (1) Sepsis Current Visit: Yes Status: Acute Assessment and Plan: - Evidence of sepsis with tachycardia, tachypnea - Lactic acid within normal limits at 1.5 - Did not meet sepsis on admission. Now resolved. - Suspected source is panniculitis as well as potential UTI - Suspected organism: Most likely skin kieran vs fungal - WBC within normal limits 6.4 - Urinalysis shows positive nitrates, large leukocyte esterase however does have many epithelial cells. Culture Escherichia coli and other gram-negative lv - Blood cultures will be obtained this morning 5/132, prelim negative - Wound culture growing corynebacterium striatum and gram negative lv - Urine culture growing gram-negative lv, Escherichia coli - Physical exam does show severe panniculitis with seropurulent drainage which is improving. - CT of the abdomen/pelvis 09/02 shows midline visceral fat containing hernias without complication, no intra-abdominal abnormality, small bowel shock and renal stones. - Wound care has been consulted - Gen. surgery evaluated yesterday and will see as outpatient. Drainage from navel likely due to increased pressure and edema - Patient was started on Zosyn and linezolid due to kidney function - Also received a dose of Unasyn and vancomycin - Vancomycin discontinued Due to negative MRSA swab Plan - Continue antibiotics of Zosyn, day #6 of therapy - Wound care - Continue fluconazole PO, day 5 - Consider switching to PO meds once sensitivities back and we know what organisms we can treat - Duration of treatment likely 14 days (2) Panniculitis Current Visit: Yes Status: Acute Assessment and Plan: Sepsis as above (3) HERBER (acute kidney injury) Current Visit: Yes Status: Resolved Assessment and Plan: Patient presents with a creatinine of 3.0 and GFR of 16. No reports of chronic kidney disease in patient's record however patient does admit to some history but is unsure stage. - Unclear if this is acute or chronic. - To catheter placed by nurse with a reported yellowish puslike drainage. Patient received fluid bolus in the ED. - Kidney function mildly worsened today with 12/.14, suspect this is likely her baseline - FeNA suggests a intrinsic etiology at 1.5% - Suspect that there is at least some component of prerenal etiology secondary to sepsis - Nephrology consulted, appreciate recommendations - Good urine output Plan - Nephrology will be signing off - Recommends discontinuing of IV fluids and oral intake encouraged - Suspect that this may be related to acute on chronic kidney injury with the etiology of sepsis and prerenal - Continue treatment of sepsis and UTI (4) Diabetes mellitus Current Visit: Yes Status: Acute Assessment and Plan: Blood glucose checks. Sliding scale insulin. Diabetic diet. Well-controlled since his admission in the 100s (5) Atrial fibrillation Current Visit: Yes Status: Acute Assessment and Plan: - Patient noted to be now rate controlled on physical examination. - EKG was obtained which showed atrial fibrillation with rapid ventricular r esponse. - Heart rate now better controlled and 70s and 80s -Telemetry - CHADVASC 5 (age, HTN, female, CHF, DM) -No home av dick blockers - Patient states that this is new for her INR 2.2 this AM, will stop heparin gtt plan - Discussed anticoagulation, patient agreeable to start Coumadin - We will obtain old records from PCP regarding how long she has been in atrial fibrillation. - May require ischemic workup, possibly as outpatient - When necessary metoprolol IV push (6) CKD (chronic kidney disease) Current Visit: Yes Status: Suspected Assessment and Plan: suspet CKD as above. Will obtain records (7) UTI (urinary tract infection) Current Visit: Yes Status: Acute Assessment and Plan: - as above - Abx and cultures pending (8) Elevated troponin Current Visit: Yes Status: Acute Assessment and Plan: - Noted to be elevated today at 0.45, this was trended to 0.25 - Suspect this is likely secondary to demand ischemia in the setting of sepsis as above - Also noted patient was in nature fibrillation with RVR which has since resolved - Patient was started on heparin drip due to A. fib - No previous history of CAD - Echocardiogram shows preserved ejection fraction with mild diastolic dysfunction Plan - We will continue monitor at this time - Will not trend troponins as it is our downtrending - EKG was obtained this morning and reviewed personally (9) Anemia Current Visit: Yes Status: Chronic Assessment and Plan: - Hemoglobin of 8.5 this morning which is down trending from 10.9 admission however stable from yesterday - Unclear baseline - It is noted that patient did receive fluids for sepsis and I suspect that this is likely a dilutional drop - No signs or symptoms of bleeding - Patient denies any symptoms - We will continue to monitor and transfuse if less than 7 DVT Prophylaxis: coumadin - Time Spent with Patient Total time spent is greater than 50% in coordination of care (as documented) at patient's floor/unit and/or counseling patient: Internal Medicine: Result - Labs CBC & Chem 7: 09/06/18 06:08 09/07/18 04:01 Labs: BMP 09/07/18 04:01 Sodium 141 Potassium 3.5 Chloride 111 H Carbon Dioxide 24 BUN 12 Creatinine 1.14 Glucose 90 Calcium 6.9 L - ABG Interpretation ABG results: ABG ABG pH 7.42 pH Units (7.32-7.45) 09/02/18 08:29 ABG pCO2 24 mmHg (35-45) L 09/02/18 08:29 ABG pO2 67 mmHg (85-104) L 09/02/18 08:29 ABG O2 Saturation 94 % (95-98) L 09/02/18 08:29 PT/INR, D-dimer PT 24.6 Seconds (9.4-12.1) H D 09/07/18 04:01 Consult Discharge Plan - Plan Referrals: Erickson Lopez MANAGER FINE [Advanced Practice Nurse] - 09/17/18 2:30 pm (Patient is going to [facility]) <Cecelia Angeles - Last Filed: 09/07/18 11:59> Hospitalist Progress Note - Encounter Date of Encounter: 09/07/18 - Exam Vitals: Temp Pulse Resp BP Pulse Ox 98.2 F 68 16 144/81 97 09/07/18 10:52 09/07/18 10:52 09/07/18 10:52 09/07/18 10:52 09/07/18 10:52 - Assessment and Plan (1) Panniculitis Current Visit: Yes Status: Acute (2) HERBER (acute kidney injury) Current Visit: Yes Status: Resolved (3) Diabetes mellitus Current Visit: Yes Status: Acute (4) Atrial fibrillation Current Visit: Yes Status: Acute (5) Sepsis Current Visit: Yes Status: Acute (6) CKD (chronic kidney disease) Current Visit: Yes Status: Suspected (7) UTI (urinary tract infection) Current Visit: Yes Status: Acute (8) Elevated troponin Current Visit: Yes Status: Acute (9) Anemia Current Visit: Yes Status: Chronic - Time Spent with Patient Total time spent is greater than 50% in coordination of care (as documented) at patient's floor/unit and/or counseling patient: Internal Medicine: Result - Labs CBC & Chem 7: 09/06/18 06:08 09/07/18 04:01 Labs: BMP 09/07/18 04:01 Sodium 141 Potassium 3.5 Chloride 111 H Carbon Dioxide 24 BUN 12 Creatinine 1.14 Glucose 90 Calcium 6.9 L - ABG Interpretation ABG results: ABG ABG pH 7.42 pH Units (7.32-7.45) 09/02/18 08:29 ABG pCO2 24 mmHg (35-45) L 09/02/18 08:29 ABG pO2 67 mmHg (85-104) L 09/02/18 08:29 ABG O2 Saturation 94 % (95-98) L 09/02/18 08:29 PT/INR, D-dimer PT 24.6 Seconds (9.4-12.1) H D 09/07/18 04:01 - Attending Attestation I examined this patient and my medical decision-making was reviewed with the Resident Physician Dr Anderson. I agree with the documented findings, disposition and treatment plan as described except to the extent set forth below. Ms Virgen is admitted with sepsis 2/2 UTI and severe candidiasis/panniculitis She developed reportedly new afib this admission awake, some burning pain in pannus, overall improving. no fevers or chills gen- alert, awake,appears stated age, obese cv- reg rate and reg rhythm,no le pitting edema lungs- ctabl, normal resp effort on room air abd- soft, non tender skin- abd folds with gauze in place, improving erythema, dried yellow drainage from umbilicus neuro- AAOx3 Sepsis 2/2 UTI and severe candidiasis/paniculitis, resolved Candidiasis pannus folds Panniculitis covering for both fungal and bacterial infection - PO fluconazole + zosyn, topical miconazole -surg consult for opening of skin in umbilicus with drainage- will see outpt in clinic -following cxs that remain pending and then will be ready for DC Possible HERBER, baseline creat unknown, prerenal + intrinsic, resolved- nephro followed, oral fluids Suspected new onset afib with trop elevation in setting of sepsis- now rate controlled afib, rate controlled without AVN amy, therapeutic INR on coumadin dosed by pharm, will require outpt fu with pcp for outpt ischemic work up further diagnoses and plan as noted by resident accepted to snf when medically able to dc <Casa Anderson - Last Filed: 09/07/18 11:25> (1) Sepsis Qualifiers: Sepsis type: sepsis due to unspecified organism Qualified Code(s): A41.9 - Sepsis, unspecified organism (4) Diabetes mellitus Qualifiers: Diabetes mellitus type: type 2 Diabetes mellitus longterm insulin 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 Diabetes mellitus complication status: with unspecified complications Qualified Code(s): E11.8 - Type 2 diabetes mellitus with unspecified complications (5) Atrial fibrillation Qualifiers: Atrial fibrillation type: paroxysmal Qualified Code(s): I48.0 - Paroxysmal atrial fibrillation (6) CKD (chronic kidney disease) Qualifiers: Chronic kidney disease stage: stage 3 (moderate) Qualified Code(s): N18.3 - Chronic kidney disease, stage 3 (moderate) (7) UTI (urinary tract infection) Qualifiers: Urinary tract infection type: acute cystitis Hematuria presence: with hematuria Qualified Code(s): N30.01 - Acute cystitis with hematuria (9) Anemia Qualifiers: Anemia type: unspecified type Qualified Code(s): D64.9 - Anemia, unspecified <Cecelia Angeles - Last Filed: 09/07/18 11:59> (3) Diabetes mellitus Qualifiers: Diabetes mellitus type: type 2 Diabetes mellitus longterm insulin 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 Diabetes mellitus complication status: with unspecified complications Qualified Code(s): E11.8 - Type 2 diabetes mellitus with unspecified complications (4) Atrial fibrillation Qualifiers: Atrial fibrillation type: paroxysmal Qualified Code(s): I48.0 - Paroxysmal atrial fibrillation (5) Sepsis Qualifiers: Sepsis type: sepsis due to unspecified organism Qualified Code(s): A41.9 - Sepsis, unspecified organism (6) CKD (chronic kidney disease) Qualifiers: Chronic kidney disease stage: stage 3 (moderate) Qualified Code(s): N18.3 - Chronic kidney disease, stage 3 (moderate) (7) UTI (urinary tract infection) Qualifiers: Urinary tract infection type: acute cystitis Hematuria presence: with hematuria Qualified Code(s): N30.01 - Acute cystitis with hematuria (9) Anemia Qualifiers: Anemia type: unspecified type Qualified Code(s): D64.9 - Anemia, unspecified
[2018-09-07] MEDS ORDERED: *HR* Warfarin 2 MG TABLET PO ONE (18:00)
[2018-09-08] MEDS: Piperacillin/Tazobactam 3.375 GM in 0.9 % Sodium Chloride Mini Bag 100 ML IVPB SCH ×4 (00:16→23:49)
[2018-09-08 07:53] LABS: INR 3.6
[2018-09-08 08:00] LABS: Calcium 7.7 mg/dL (8.6-10.3); Potassium 3.6 mEq/L (3.5-5.1)
--- NOTE | 2018-09-08 08:02 | Internal Med Progress Note ---
<Cecelia Angeles - Last Filed: 09/08/18 11:09> Hospitalist Progress Note - Encounter Date of Encounter: 09/08/18 - Exam Vitals: Temp Pulse Resp BP Pulse Ox 97.7 F 70 16 129/77 97 09/08/18 06:44 09/08/18 06:44 09/08/18 06:44 09/08/18 06:44 09/08/18 06:44 - Assessment and Plan (1) Panniculitis Current Visit: Yes Status: Acute (2) HERBER (acute kidney injury) Current Visit: Yes Status: Resolved (3) Diabetes mellitus Current Visit: Yes Status: Acute (4) Atrial fibrillation Current Visit: Yes Status: Acute (5) Sepsis Current Visit: Yes Status: Acute (6) CKD (chronic kidney disease) Current Visit: Yes Status: Suspected (7) UTI (urinary tract infection) Current Visit: Yes Status: Acute (8) Elevated troponin Current Visit: Yes Status: Acute (9) Anemia Current Visit: Yes Status: Chronic - Time Spent with Patient Total time spent is greater than 50% in coordination of care (as documented) at patient's floor/unit and/or counseling patient: Internal Medicine: Result - Labs CBC & Chem 7: 09/06/18 06:08 09/08/18 07:30 Labs: BMP 09/08/18 07:30 Sodium 139 Potassium 3.6 Chloride 108 H Carbon Dioxide 23 BUN 11 Creatinine 1.26 H Glucose 105 Calcium 7.7 L - ABG Interpretation ABG results: ABG ABG pH 7.42 pH Units (7.32-7.45) 09/02/18 08:29 ABG pCO2 24 mmHg (35-45) L 09/02/18 08:29 ABG pO2 67 mmHg (85-104) L 09/02/18 08:29 ABG O2 Saturation 94 % (95-98) L 09/02/18 08:29 PT/INR, D-dimer PT 41.0 Seconds (9.4-12.1) H D 09/08/18 07:30 Consult Discharge Plan - Plan Referrals: Erickson Lopez, [employer] [Advanced Practice Nurse] - 09/17/18 2:30 pm (Patient is going to [facility]) - Attending Attestation I examined this patient and my medical decision-making was reviewed with the Resident Physician Dr Anderson. I agree with the documented findings, disposition and treatment plan as described except to the extent set forth below. Ms Virgen is admitted with sepsis 2/2 UTI and severe candidiasis/panniculitis She developed reportedly new afib this admission awake, no fevers or chills. no skin itching. some mild burning in pannus region. gen- alert, awake,appears stated age, obese cv- reg rate and reg rhythm,no le pitting edema lungs- ctabl, normal resp effort on room air abd- soft, non tender skin- abd folds with gauze in place, erythema improving, scant drainage, dried yellow drainage from umbilicus neuro- AAOx3 Sepsis 2/2 UTI and severe candidiasis/paniculitis, resolved Candidiasis pannus folds Panniculitis covering for both fungal and bacterial infection - PO fluconazole + zosyn, topical miconazole -surg consult for opening of skin in umbilicus with drainage- will see outpt in clinic -following cxs that remain pending and then will be ready for DC to snf Possible HERBER, baseline creat unknown, prerenal + intrinsic,daily varying of creat, overall stable- nephro followed, oral fluids Suspected new onset afib with trop elevation in setting of sepsis- now rate controlled afib, rate controlled without AVN amy, ton coumadin dosed by pharm, will require outpt fu with pcp for outpt ischemic work up supratherapeutic INR 3.6- hold warfarin tonight and cont to monitor, no evidence of bleeding, pharmacy to dose further diagnoses and plan as noted by resident accepted to snf when medically able to dc <Csaa Anderson - Last Filed: 09/08/18 14:36> Hospitalist Progress Note - Encounter Date of Encounter: 09/08/18 Time of Encounter: 09:10 - Subjective Interval History: Patient was seen and examined at bedside this morning. She states that overall she is doing the same. Still having some abdominal pain but denies any fevers, chills, nausea, vomiting. - Exam Vitals: Temp Pulse Resp BP Pulse Ox 97.7 F 70 16 129/77 97 09/08/18 06:44 09/08/18 06:44 09/08/18 06:44 09/08/18 06:44 09/08/18 06:44 Exam: Gen.: Vitals noted. No acute distress. AAOx3, resting comfortably in bed. Morbidly obese HEENT: PERRL/EOMI, oropharynx clear, Normocephalic, atraumatic, MMM Cardiac: Irregularly irregular, no murmur, +S1/S2, 1+ BLE edema Pulmonary: CTA bilaterally, no wheezes, rales or rhonchi, equal chest expansion, unlabored breathing Abdomen: soft, mildly tender to palpation in the lower regions but improved, BS noted, no guarding, no palpable HSM Skin: warm and dry, umbilicus with evidence of purulent drainage improved, pannus on underside does show significant more dry-appearing erythema and scaling with no obvious drainage. MSK: ROM assessed, no joint swelling noted, gait no assessed while in bed. Non tender calf or clubbing Neuro: A&Ox3, moves all extremities, no focal deficits, sensation intact Psych: Appropriate mood and behavior, AOx3 - Assessment and Plan (1) Sepsis Current Visit: Yes Status: Resolved Assessment and Plan: - Evidence of sepsis with tachycardia, tachypnea - Lactic acid within normal limits at 1.5 - Did not meet sepsis on admission. Now resolved. - Suspected source is panniculitis as well as potential UTI - Suspected organism: Most likely skin kieran vs fungal - WBC within normal limits 6.4 - Urinalysis shows positive nitrates, large leukocyte esterase however does have many epithelial cells. Culture Escherichia coli and other gram-negative lv - Blood cultures will be obtained this morning , prelim negative - Wound culture growing corynebacterium striatum and gram negative lv - Urine culture growing gram-negative lv, Escherichia coli - Physical exam does show severe panniculitis with seropurulent drainage which is improving. - CT of the abdomen/pelvis 09/02 shows midline visceral fat containing hernias without complication, no intra-abdominal abnormality, small bowel shock and renal stones. - Wound care has been consulted - Gen. surgery evaluated yesterday and will see as outpatient. Drainage from navel likely due to increased pressure and edema - Patient was started on Zosyn and linezolid due to kidney function - Also received a dose of Unasyn and vancomycin - Vancomycin discontinued Due to negative MRSA swab Plan - Continue antibiotics of Zosyn, day #7 of therapy - Wound care - Continue fluconazole PO, day 6 - Consider switching to PO meds once sensitivities back and we know what organisms we can treat - Duration of treatment likely 14 days (2) Panniculitis Current Visit: Yes Status: Acute Assessment and Plan: Sepsis as above (3) HERBER (acute kidney injury) Current Visit: Yes Status: Resolved Assessment and Plan: Patient presents with a creatinine of 3.0 and GFR of 16. No reports of chronic kidney disease in patient's record however patient does admit to some history but is unsure stage. - Unclear if this is acute or chronic. - To catheter placed by nurse with a reported yellowish puslike drainage. Patient received fluid bolus in the ED. - Kidney function mildly worsened today with 02/21.26, suspect this is likely her baseline - FeNA suggests a intrinsic etiology at 1.5% - Suspect that there is at least some component of prerenal etiology secondary to sepsis - Nephrology consulted, appreciate recommendations - Good urine output Plan - Nephrology will be signing off - Recommends discontinuing of IV fluids and oral intake encouraged - Suspect that this may be related to acute on chronic kidney injury with the etiology of sepsis and prerenal - Continue treatment of sepsis and UTI (4) Diabetes mellitus Current Visit: Yes Status: Acute Assessment and Plan: Blood glucose checks. Sliding scale insulin. Diabetic diet. Well-controlled since his admission in the 100s (5) Atrial fibrillation Current Visit: Yes Status: Acute Assessment and Plan: - Patient noted to be now rate controlled on physical examination. - EKG was obtained which showed atrial fibrillation with rapid ventricular response. - Heart rate now better controlled and 70s and 80s -Telemetry - CHADVASC 5 (age, HTN, female, CHF, DM) -No home av dick blockers - Patient states that this is new for her INR 3.6 this AM, pharmacy to dose plan - Continue Coumadin - May require ischemic workup, possibly as outpatient - When necessary metoprolol IV push (6) CKD (chronic kidney disease) Current Visit: Yes Status: Suspected Assessment and Plan: suspet CKD as above. Will obtain records (7) UTI (urinary tract infection) Current Visit: Yes Status: Acute Assessment and Plan: - as above - Abx and cultures pending (8) Elevated troponin Current Visit: Yes Status: Acute Assessment and Plan: - Noted to be elevated today at 0.45, this was trended to 0.25 - Suspect this is likely secondary to demand ischemia in the setting of sepsis as above - Also noted patient was in nature fibrillation with RVR which has since resolved - Patient was started on heparin drip due to A. fib - No previous history of CAD - Echocardiogram shows preserved ejection fraction with mild diastolic dysfunction Plan - We will continue monitor at this time - Will not trend troponins as it is our downtrending - EKG was obtained this morning and reviewed personally (9) Anemia Current Visit: Yes Status: Chronic Assessment and Plan: - Hemoglobin of 8.5 this morning which is down trending from 10.9 admission however stable from yesterday - Unclear baseline - It is noted that patient did receive fluids for sepsis and I suspect that this is likely a dilutional drop - No signs or symptoms of bleeding - Patient denies any symptoms - We will continue to monitor and transfuse if less than 7 DVT Prophylaxis: coumadin - Time Spent with Patient Total time spent is greater than 50% in coordination of care (as documented) at patient's floor/unit and/or counseling patient: Internal Medicine: Result - Labs CBC & Chem 7: 09/06/18 06:08 09/08/18 07:30 Labs: BMP 09/08/18 07:30 Sodium 139 Potassium 3.6 Chloride 108 H Carbon Dioxide 23 BUN 11 Creatinine 1.26 H Glucose 105 Calcium 7.7 L - ABG Interpretation ABG results: ABG ABG pH 7.42 pH Units (7.32-7.45) 09/02/18 08:29 ABG pCO2 24 mmHg (35-45) L 09/02/18 08:29 ABG pO2 67 mmHg (85-104) L 09/02/18 08:29 ABG O2 Saturation 94 % (95-98) L 09/02/18 08:29 PT/INR, D-dimer PT 41.0 Seconds (9.4-12.1) H D 09/08/18 07:30 <Cecelia Angeles - Last Filed: 09/08/18 11:09> (3) Diabetes mellitus Qualifiers: Diabetes mellitus type: type 2 Diabetes mellitus intermediate teacher insulin use: unspecified intermediate teacher insulin use status Diabetes mellitus complication status: with unspecified complications Qualified Code(s): E11.8 - Type 2 diabetes mellitus with unspecified complications (4) Atrial fibrillation Qualifiers: Atrial fibrillation type: paroxysmal Qualified Code(s): I48.0 - Paroxysmal atrial fibrillation (5) Sepsis Qualifiers: Sepsis type: sepsis due to unspecified organism Qualified Code(s): A41.9 - Sepsis, unspecified organism (6) CKD (chronic kidney disease) Qualifiers: Chronic kidney disease stage: stage 3 (moderate) Qualified Code(s): N18.3 - Chronic kidney disease, stage 3 (moderate) (7) UTI (urinary tract infection) Qualifiers: Urinary tract infection type: acute cystitis Hematuria presence: with hematuria Qualified Code(s): N30.01 - Acute cystitis with hematuria (9) Anemia Qualifiers: Anemia type: unspecified type Qualified Code(s): D64.9 - Anemia, unspecified <Casa Anderson - Last Filed: 09/08/18 14:36> (1) Sepsis Qualifiers: Sepsis type: sepsis due to unspecified organism Qualified Code(s): A41.9 - Sepsis, unspecified organism (4) Diabetes mellitus Qualifiers: Diabetes mellitus type: type 2 Diabetes mellitus intermediate teacher insulin use: unspecified longterm insulin use status Diabetes mellitus complication status: with unspecified complications Qualified Code(s): E11.8 - Type 2 diabetes mellitus with unspecified complications (5) Atrial fibrillation Qualifiers: Atrial fibrillation type: paroxysmal Qualified Code(s): I48.0 - Paroxysmal atrial fibrillation (6) CKD (chronic kidney disease) Qualifiers: Chronic kidney disease stage: stage 3 (moderate) Qualified Code(s): N18.3 - Chronic kidney disease, stage 3 (moderate) (7) UTI (urinary tract infection) Qualifiers: Urinary tract infection type: acute cystitis Hematuria presence: with hematuria Qualified Code(s): N30.01 - Acute cystitis with hematuria (9) Anemia Qualifiers: Anemia type: unspecified type Qualified Code(s): D64.9 - Anemia, unspecified
[2018-09-08] MEDS: Insulin LISPRO 300 UNITS/3 ML VIAL SQ SCH ×3 (08:40→17:24)
[2018-09-08] MEDS: Fluconazole 100 MG TABLET PO SCH (08:40)
[2018-09-08] MEDS: Aspirin Enteric Coated 81 MG Tablet PO SCH (08:40)
[2018-09-08] MEDS: Miconazole 2% ointment 114 GM TUBE TP SCH ×2 (08:41→20:53)
[2018-09-08] MEDS: Lactobacillus 1 EACH CAP.SPRINK PO SCH (15:46)
[2018-09-09 04:59] LABS: INR 3.1; Prothrombin Time 34.8 Seconds (9.4-12.1)
[2018-09-09] MEDS: Insulin LISPRO 300 UNITS/3 ML VIAL SQ SCH ×3 (07:22→17:26)
[2018-09-09] MEDS: Fluconazole 100 MG TABLET PO SCH (09:42)
[2018-09-09] MEDS: Lactobacillus 1 EACH CAP.SPRINK PO SCH (09:42)
[2018-09-09] MEDS: Piperacillin/Tazobactam 3.375 GM in 0.9 % Sodium Chloride Mini Bag 100 ML IVPB SCH (09:42)
[2018-09-09] MEDS: Miconazole 2% ointment 114 GM TUBE TP SCH (09:43)
[2018-09-09] MEDS: Aspirin Enteric Coated 81 MG Tablet PO SCH (09:43)
--- NOTE | 2018-09-09 11:40 | Discharge Summary ---
<Cecelia Angeles - Last Filed: 09/09/18 12:05> - NOTES TO OUTPATIENT PROVIDER Notes to Outpatient Provider: completing 14d total of abx for cellulitis. Given she will be on bactrim check creat level in 3-5 days. Requires totpical and oral antifungal for candidiasis of skin. May require up top 4 weeks oral fluconazole. We provided rx for total 14d treatment, please re eval and cont as apporpaite at that time. Surgery follow up wt Dr Nash for umbilicus skin wound. On warfarin for afib, inr 3.1 on dc- check inr in 2-3d and dose adjust as needed. Should have outpt ischemic work up. Orders not resulted at time of discharge: Pending orders 09/02/18 00:00 Culture,Urine [RM] Stat Culture,Wound [RM] Stat 09/02/18 17:33 Fungal Culture,Skin [MYC] Routine 09/10/18 04:00 PT/INR [Prothrombin Time INR] [COAG] AM 0400 09/11/18 04:00 PT/INR [Prothrombin Time INR] [COAG] AM 0400 09/12/18 04:00 PT/INR [Prothrombin Time INR] [COAG] AM 0400 09/13/18 04:00 PT/INR [Prothrombin Time INR] [COAG] AM 0400 09/14/18 04:00 PT/INR [Prothrombin Time INR] [COAG] AM 0400 Date of Encounter: 09/09/18 - Discharge Diagnosis (1) Panniculitis Priority: Primary Status: Acute (2) HERBER (acute kidney injury) Priority: Secondary Status: Resolved (3) Diabetes mellitus Priority: Secondary Status: Chronic Qualifiers: Diabetes mellitus type: type 2 Diabetes mellitus watermelon inspector insulin use: unspecified watermelon inspector insulin use status Diabetes mellitus complication status: with unspecified complications Qualified Code(s): E11.8 - Type 2 diabetes mellitus with unspecified complications (4) Atrial fibrillation Priority: Secondary Status: Acute Qualifiers: Atrial fibrillation type: paroxysmal Qualified Code(s): I48.0 - Paroxysmal atrial fibrillation (5) Sepsis Priority: Secondary Status: Resolved Qualifiers: Sepsis type: sepsis due to unspecified organism Qualified Code(s): A41.9 - Sepsis, unspecified organism (6) CKD (chronic kidney disease) Priority: Secondary Status: Suspected Qualifiers: Chronic kidney disease stage: stage 3 (moderate) Qualified Code(s): N18.3 - Chronic kidney disease, stage 3 (moderate) (7) UTI (urinary tract infection) Priority: Secondary Status: Acute Qualifiers: Urinary tract infection type: acute cystitis Hematuria presence: with hematuria Qualified Code(s): N30.01 - Acute cystitis with hematuria (8) Elevated troponin Priority: Secondary Status: Acute (9) Anemia Priority: Secondary Status: Chronic Qualifiers: Anemia type: unspecified type Qualified Code(s): D64.9 - Anemia, unspecified Hospital course: Ms. Virgen is a 67 year old female Discharge discussed with: patient, social work, resourcing consultant - Time Spent with Patient Total time spent providing and/or coordinating discharge services: Time spent: Greater than 30 minutes (35 min) - Discharge Medications Prescriptions: New Amoxicillin/Clavulanate [Augmentin] 875 mg PO BIDWM #12 tablet Sulfamethoxazole/Trimeth DS [Bactrim DS] 1 each PO BID #12 tablet Lactobacillus [Culturelle] 1 each PO DAILY #14 cap.sprink Fluconazole [Diflucan] 200 mg PO DAILY #14 tablet Ergocalciferol (VITAMIN D2) [Vitamin D2] 50,000 unit PO QWEEK #2 capsule Warfarin [Coumadin] 2.5 mg PO 1800 #10 tablet Miconazole 2% cream [De Antifungal] 1 appl TP BID tube Miconazole 2% ointment [Aloe [place] Antifungal Ointment] 1 appl TP BID tube Continued Oxybutynin [Ditropan] 5 mg PO BID Lisinopril-HCTZ 10-12.5 [Prinzide 10-12.5] 2 each PO DAILY Insulin Glargine [Lantus] 60 unit SQ HS Alendronate Sodium 70 mg PO SA Atorvastatin [Lipitor] 20 mg PO HS Aspirin [Lo-Dose Aspirin EC] 81 mg PO DAILY Pioglitazone [Actos] 15 mg PO 0800 Discontinued Ibuprofen [Ibu] 800 mg PO TID Home Medications: Alendronate Sodium 70 mg PO SA 09/01/18 [History] Aspirin [Lo-Dose Aspirin EC] 81 mg PO DAILY 09/01/18 [History] Atorvastatin [Lipitor] 20 mg PO HS 09/01/18 [History] Insulin Glargine [Lantus] 60 unit SQ HS 09/01/18 [History] Lisinopril-HCTZ 10-12.5 [Prinzide 10-12.5] 2 each PO DAILY 09/01/18 [History] Oxybutynin [Ditropan] 5 mg PO BID 09/01/18 [History] Pioglitazone [Actos] 15 mg PO 0800 09/01/18 [History] Amoxicillin/Clavulanate [Augmentin] 875 mg PO BIDWM #12 tablet 09/09/18 [Rx] Ergocalciferol (VITAMIN D2) [Vitamin D2] 50,000 unit PO QWEEK #2 capsule 09/09/18 [Rx] Fluconazole [Diflucan] 200 mg PO DAILY #14 tablet 09/09/18 [Rx] Lactobacillus [Culturelle] 1 each PO DAILY #14 cap.sprink 09/09/18 [Rx] Miconazole 2% cream [De Antifungal] 1 appl TP BID tube 09/09/18 [Rx] Miconazole 2% ointment [Aloe [place] Antifungal Ointment] 1 appl TP BID tube 09/09/18 [Rx] Sulfamethoxazole/Trimeth DS [Bactrim DS] 1 each PO BID #12 tablet 09/09/18 [Rx] Warfarin [Coumadin] 2.5 mg PO 1800 #10 tablet 09/09/18 [Rx] Allergies/Adverse Reactions: Allergy/AdvReac Type Severity Reaction Status Date / Time hydrocodone [From Vicodin] AdvReac Vomiting Verified 09/01/18 20:52 Date of admission: 09/02/18 00:52 Primary care physician: PCP NONE Consults: 09/02/18 00:01 Consult to Time Study Engineer [CONS] Routine Reason for SW Consult: may need ECF placement Consult to Wound Care [CONS] Routine Reason for Consult: Multiple pressure ulcers to coccyx, multiple open abdominal fold wounds, etc. Call Completed: No 09/02/18 00:09 Consult to Nephrology [CONS] Routine Consulting Provider: Kidney Bobbi/SIENA/ALIZA/YOCASTA Reason for Consult: HERBER of unclear chronicity Call Completed: No 09/02/18 11:33 Consult to Occupational Therapy [CONS] Routine Comment: Evaluate, develop and implement POC Reason for Consult: possible placement. Does patient have active BEDREST order?: No Is patient medically & hemodynamically stable?: Yes Patient assessed for mobility or mobilized this visit?: Yes Consult to Physical Therapy [CONS] Routine Comment: Evaluate, develop and implement POC Reason for Consult: possible placement Does patient have active BEDREST order?: No Is patient medically & hemodynamically stable?: Yes Patient assessed for mobility or mobilized this visit?: Yes 09/04/18 11:46 Consult to Surgery [CONS] Routine Consulting Provider: Acute Care Surgery Reason for Consult: Pus drainage from navel Call Completed: Yes Discharging clinician: Casa Anderson - Constitutional Vitals: Temp Pulse Resp BP Pulse Ox 98.0 F 63 16 135/79 96 09/09/18 10:46 09/09/18 10:46 09/09/18 10:46 09/09/18 10:46 09/09/18 10:46 - Patient Status Disposition: Transfer SNF Condition: Good - Ambulatory Orders Ambulatory Orders: Basic Metabolic Panel [CHEM] Time Frame: 3 Days, Facility: [facility], Location: Lab Prothrombin Time INR [COAG] Time Frame: 2 Days, Facility: [facility], Location: Lab - Discharge Instructions Follow Up With: Erickson Lopez CNP [Advanced Practice Nurse] - 09/17/18 2:30 pm (Patient is going to [facility]) Italo Nash MD [Non-Partnered Physician] - - Attending Attestation I examined this patient and my medical decision-making was reviewed with the Resident Physician Dr Anderson. I agree with the documented findings, disposition and treatment plan as described except to the extent set forth below. Ms Virgen is admitted with sepsis 2/2 UTI and severe candidiasis/panniculitis She developed reportedly new afib this admission. She is medically stable for dc to snf. Prior to discharge team discussed her case with ID team and reviewed cx results. Discharge medication recommendations were made. She will follow up with pcp upon dc. awake, feeling well. eager for dc. no fevers, chills, nausea or vomiting. no abd / panus pain. minimal itching. gen- alert, awake,appears stated age, obese cv- reg rate and reg rhythm,normal s1s2, no le edema lungs- ctabl, normal resp effort on room air abd- soft, non tender, non distended + bs skin- abd folds with gauze in place, scant drainage, improving erythema localized to panus, dried yellow drainage from umbilicus no erythema neuro- AAOx3 Sepsis 2/2 UTI and severe candidiasis/paniculitis, resolved Candidiasis pannus folds Panniculitis covering for both fungal and bacterial infection - PO fluconazole + zosyn while inpt, d/w ID team and verbal rec for augmentin + bactrim to complete 14d total tx, cont oral fluconazole, pts typically require prolonged course up to 4 weeks, we will have her ocmplete 2 weeks and fu outpt to determine if clinically appropriate ot cont further, cont topical miconazole -surg consult for opening of skin in umbilicus with drainage- will see outpt in clinic- Dr Nash Possible HERBER, baseline creat unknown, prerenal + intrinsic,daily varying of creat, overall stable- nephro followed, oral fluids, stable, check creat outpt with bactrim initiation Suspected new onset afib with trop elevation in setting of sepsis- now NSR, without AVN amy, on coumadin dosed by pharm, will require outpt fu with pcp for outpt ischemic work up, INR check outpt supratherapeutic INR 3.1- dose djusted by pharmacy, INR check in 2-3 days DM- may resume home regimen on dc HTN- cont home acei/hctz on dc and follow up outpt for further bp monitoring further diagnoses and plan as noted by resident time spent on dc 35 min <Casa Anderson - Last Filed: 09/09/18 13:46> - NOTES TO OUTPATIENT PROVIDER Notes to Outpatient Provider: Will follow with coumadin clinic for AFib. This is new onset Afib which ischemic workup was not pursued on this visit. Consider as outpatient. Should have INR checked in 2-3 days and will likely need dose adjustment after finishing fluconazole. Orders not resulted at time of discharge: Pending orders 09/02/18 00:00 Culture,Urine [RM] Stat Culture,Wound [RM] Stat 09/02/18 17:33 Fungal Culture,Skin [MYC] Routine 09/10/18 04:00 PT/INR [Prothrombin Time INR] [COAG] AM 0400 09/11/18 04:00 PT/INR [Prothrombin Time INR] [COAG] AM 0400 09/12/18 04:00 PT/INR [Prothrombin Time INR] [COAG] AM 0400 09/13/18 04:00 PT/INR [Prothrombin Time INR] [COAG] AM 0400 09/14/18 04:00 PT/INR [Prothrombin Time INR] [COAG] AM 0400 Date of Encounter: 09/09/18 Time of Encounter: 09:11 - Discharge Diagnosis (1) Panniculitis Priority: Primary Status: Acute (2) Diabetes mellitus Priority: Secondary Status: Chronic Qualifiers: Diabetes mellitus type: type 2 Diabetes mellitus watermelon inspector insulin use: unspecified watermelon inspector insulin use status Diabetes mellitus complication status: with unspecified complications Qualified Code(s): E11.8 - Type 2 diabetes mellitus with unspecified complications (3) Atrial fibrillation Priority: Secondary Status: Acute Qualifiers: Atrial fibrillation type: paroxysmal Qualified Code(s): I48.0 - Paroxysmal atrial fibrillation (4) Sepsis Priority: Secondary Status: Resolved Qualifiers: Sepsis type: sepsis due to unspecified organism Qualified Code(s): A41.9 - Sepsis, unspecified organism (5) CKD (chronic kidney disease) Priority: Secondary Status: Suspected Qualifiers: Chronic kidney disease stage: stage 3 (moderate) Qualified Code(s): N18.3 - Chronic kidney disease, stage 3 (moderate) (6) UTI (urinary tract infection) Priority: Secondary Status: Acute Qualifiers: Urinary tract infection type: acute cystitis Hematuria presence: with hematuria Qualified Code(s): N30.01 - Acute cystitis with hematuria (7) Elevated troponin Priority: Secondary Status: Acute (8) Anemia Priority: Secondary Status: Chronic Qualifiers: Anemia type: unspecified type Qualified Code(s): D64.9 - Anemia, unspecified (9) HERBER (acute kidney injury) Priority: Secondary Status: Resolved Hospital course: Ms. Virgen is a 67 year old female with past medical history diabetes, hypertension, hyperlipidemia presenting to the emergency department with a complaint of abdominal pain. Patient is reportedly mostly bedbound at baseline. Upon physical examination, patient was found to have a panniculitis with purulent drainage response. She was admitted for further evaluation and treatment. Vital signs on presentation were significant for heart rate of 101, otherwise unremarkable. Laboratory results showed no evidence of leukocytosis, baseline anemia, sodium of 133, BUN/creatinine/creatinine of 91/3.00, glucose 189 and lactic acid within normal limits. Troponin was also elevated at 0.45 which was trended to 0.25. EKG showed atrial fibrillation with rapid ventricular response no ST changes or T-wave changes. Chest x-ray showed no acute cardiopulmonary disease. CT of the abdomen was obtained due to periodic drainage from unable. This showed midline ventral fat-containing hernias without complication, otherwise no acute intra-abdominal abnormality. During course of hospital stay, patient did gradually improve. She was initially started on vancomycin, Zosyn, fluconazole with improvement of a panniculitis. Wound cultures and urine cultures were obtained. Urine culture positive for Escherichia coli as well as gram-negative lv. Wound culture growing corynebacterium stratum as well as chryseobacterium indologenes. I did personally discuss this with our infectious disease physician who speculated that this is likely skin kieran and recommended further treatment with Augmentin and Bactrim for a total of 14 day course. She completed a total of 8 days of Zosyn prior to discharge. Vancomycin was stopped secondary to negative MRSA nasal swab. Patient's kidney function did improve with fluids and she was seen by our community support specialist during her stay. Suspect the patient does have baseline CKD stage III and this has improved to baseline levels. Troponin was trended and adynamic and thought likely type II demand ischemia. She also went into new onset atrial fibrillation which is now rate controlled and she has been transitioned from heparin drip to Coumadin. She will require outpatient evaluation for ischemic source as well as follow with the Coumadin clinic. Antibiotics, wound care, general surgeon follow-up scheduled for pressure dehiscence of navel. She will be discharged in stable medical condition to residential facility for short-term rehabilitation stay. All questions were answered Discharge discussed with: patient, social work, resourcing consultant - Time Spent with Patient Total time spent providing and/or coordinating discharge services: Date of admission: 09/02/18 00:52 Primary care physician: PCP NONE Consults: 09/02/18 00:01 Consult to Time Study Engineer [CONS] Routine Reason for SW Consult: may need ECF placement Consult to Wound Care [CONS] Routine Reason for Consult: Multiple pressure ulcers to coccyx, multiple open abdominal fold wounds, etc. Call Completed: No 09/02/18 00:09 Consult to Nephrology [CONS] Routine Consulting Provider: Kidney Oakley/ORIMI/PARG/BROWN Reason for Consult: HERBER of unclear chronicity Call Completed: No 09/02/18 11:33 Consult to Occupational Therapy [CONS] Routine Comment: Evaluate, develop and implement POC Reason for Consult: possible placement. Does patient have active BEDREST order?: No Is patient medically & hemodynamically stable?: Yes Patient assessed for mobility or mobilized this visit?: Yes Consult to Physical Therapy [CONS] Routine Comment: Evaluate, develop and implement POC Reason for Consult: possible placement Does patient have active BEDREST order?: No Is patient medically & hemodynamically stable?: Yes Patient assessed for mobility or mobilized this visit?: Yes 09/04/18 11:46 Consult to Surgery [CONS] Routine Consulting Provider: Acute Care Surgery Reason for Consult: Pus drainage from navel Call Completed: Yes Anticipated date of discharge: 09/09/18 - Constitutional Vitals: Temp Pulse Resp BP Pulse Ox 98.0 F 63 16 135/79 96 09/09/18 10:46 09/09/18 10:46 09/09/18 10:46 09/09/18 10:46 09/09/18 10:46 Exam: Gen.: Vitals noted. No acute distress. AAOx3, resting comfortably in bed. Morbidly obese HEENT: PERRL/EOMI, oropharynx clear, Normocephalic, atraumatic, MMM Cardiac: Irregularly irregular, no murmur, +S1/S2, 1+ BLE edema Pulmonary: CTA bilaterally, no wheezes, rales or rhonchi, equal chest expansion, unlabored breathing Abdomen: soft, mildly tender to palpation in the lower regions but improved, BS noted, no guarding, no palpable HSM Skin: warm and dry, umbilicus with evidence of purulent drainage improved, pannus on underside does show significant more dry-appearing erythema and scaling with no obvious drainage. MSK: ROM assessed, no joint swelling noted, gait no assessed while in bed. Non tender calf or clubbing Neuro: A&Ox3, moves all extremities, no focal deficits, sensation intact Psych: Appropriate mood and behavior, AOx3 - Patient Status Functional capacity at discharge: uses cane/walker Overall status at discharge: patient is progressing back to baseline - Diet and Activity Activity: increase activity as tolerated, return to work once cleared by your PCP/specialist, resume usual activities as tolerated Diet: diabetic diet
--- NOTE | 2018-09-09 11:42 | Physician Discharge Referral ---
<Casa Anderson - Last Filed: 09/09/18 11:56> - Diagnosis (1) Panniculitis Status: Acute (2) HERBER (acute kidney injury) Status: Resolved (3) Diabetes mellitus Status: Acute (4) Atrial fibrillation Status: Acute (5) Sepsis Status: Resolved (6) CKD (chronic kidney disease) Status: Suspected (7) UTI (urinary tract infection) Status: Acute (8) Elevated troponin Status: Acute (9) Anemia Status: Chronic - Transfer Medications Prescriptions: Amoxicillin/Clavulanate [Augmentin] 875 mg PO BIDWM #12 tablet Sulfamethoxazole/Trimeth DS [Bactrim DS] 1 each PO BID #12 tablet Warfarin [Coumadin] 2.5 mg PO 1800 #10 tablet Lactobacillus [Culturelle] 1 each PO DAILY #14 cap.sprink Fluconazole [Diflucan] 200 mg PO DAILY #14 tablet Ergocalciferol (VITAMIN D2) [Vitamin D2] 50,000 unit PO QWEEK #2 capsule Home Medications: Alendronate Sodium 70 mg PO SA 09/01/18 [History] Aspirin [Lo-Dose Aspirin EC] 81 mg PO DAILY 09/01/18 [History] Atorvastatin [Lipitor] 20 mg PO HS 09/01/18 [History] Insulin Glargine [Lantus] 60 unit SQ HS 09/01/18 [History] Lisinopril-HCTZ 10-12.5 [Prinzide 10-12.5] 2 each PO DAILY 09/01/18 [History] Oxybutynin [Ditropan] 5 mg PO BID 09/01/18 [History] Pioglitazone [Actos] 15 mg PO 0800 09/01/18 [History] Amoxicillin/Clavulanate [Augmentin] 875 mg PO BIDWM #12 tablet 09/09/18 [Rx] Ergocalciferol (VITAMIN D2) [Vitamin D2] 50,000 unit PO QWEEK #2 capsule 09/09/18 [Rx] Fluconazole [Diflucan] 200 mg PO DAILY #14 tablet 09/09/18 [Rx] Lactobacillus [Culturelle] 1 each PO DAILY #14 cap.sprink 09/09/18 [Rx] Miconazole 2% cream [De Antifungal] 1 appl TP BID tube 09/09/18 [Rx] Miconazole 2% ointment [Aloe [place] Antifungal Ointment] 1 appl TP BID tube 09/09/18 [Rx] Sulfamethoxazole/Trimeth DS [Bactrim DS] 1 each PO BID #12 tablet 09/09/18 [Rx] Warfarin [Coumadin] 2.5 mg PO 1800 #10 tablet 09/09/18 [Rx] Allergies/Adverse Reactions: Allergy/AdvReac Type Severity Reaction Status Date / Time acetaminophen [From Vicodin] AdvReac Vomiting Verified 09/01/18 20:52 hydrocodone [From Vicodin] AdvReac Vomiting Verified 09/01/18 20:52 - Respiratory Orders Smoking Cessation: Smoking cessation has been advised. For more information, call the [facility] Quit Line at 4-992-HBUBNOW. CERTIFICATION: I certify that the transfer of the above named patient to an Extended Care Facility is necessary for the continuing treatment of the diagnosis listed. The above information is true and accurate reflection of patient's current condition. Confidential - Redisclosure prohibited without a patient's written consent. <Cecelia Angeles - Last Filed: 09/09/18 12:09> ExtendedCare Referral Info Provider in Charge after Transfer: PCP - Diagnosis (1) Panniculitis Priority: Secondary Status: Acute (2) HERBER (acute kidney injury) Priority: Secondary Status: Resolved (3) Diabetes mellitus Priority: Secondary Status: Chronic (4) Atrial fibrillation Priority: Secondary Status: Acute (5) Sepsis Priority: Primary Status: Resolved (6) CKD (chronic kidney disease) Priority: Secondary Status: Suspected (7) UTI (urinary tract infection) Priority: Secondary Status: Acute (8) Elevated troponin Priority: Secondary Status: Acute (9) Anemia Priority: Secondary Status: Chronic - Respiratory Orders None Smoking Cessation: Smoking cessation has been advised. For more information, call the [facility] Quit Line at 4-232-XIZJ-NOW. - Lab Orders Lab Orders: Other (include drug levels w/frequency) (INR 2 days from dc on warfarin goal inr 2-3, bun/creat in 3-5 days with initiation of bactrim) - Ancillary Orders May use pressure relief devices daily prn - Advance Directives Code Status: Full Code - Mobility Orders Ambulate - Rehabiliation Orders Rehab Potential: Fair Rehab Orders: Sternal Precautions, ROM Exercises, Evaluation for Physical Therapy, Evaluation for Occupational Therapy - Treatments Skin tear care topically daily PRN per policy - Diet Orders No Concentrated Sweets CERTIFICATION: I certify that the transfer of the above named patient to an Extended Care Facility is necessary for the continuing treatment of the diagnosis listed. The above information is true and accurate reflection of patient's current condition. Confidential - Redisclosure prohibited without a patient's written consent.
[2018-09-09 16:13] VITALS: BP 147/83
[2018-09-09] MEDS ORDERED: *HR* Warfarin 3 MG TABLET PO ONE (18:00)
== END 2018-09-09 20:00 | DRG 872 ==
LOC: 2ANU 18:20 → EMEROOARM 18:20 → 2ANU 22:55 → SUATTDRO 09-02 00:52 → 2NNU 09-02 02:24 → 2ANU 09-05 19:27
PROVIDERS: ADMIT Pediatrics; ATTEND Internal Medicine